=== PATIENT | male | born 1955 | race Caucasian/White ===

== ENCOUNTER → 2017-06-12 12:23 | Outpatient (CLI) | payer OTHER, SELFPAY ==
[2017-06-12 13:28] LABS: AST(SGOT) 22 U/L (15-37); Alanine Aminotransfer ALT/SGPT 39 U/L (16-61); Albumin, Serum 4.1 g/dL (3.2-5.0); Alkaline Phosphatase 34 U/L (45-117); Bilirubin, Direct 0.08 mg/dL (0.00-0.30); Cholesterol 173 mg/dL (200); Globulin 3.8 g/dL (2.2-4.2); High Density Lipoprotein 48 mg/dL; Protein, Total 7.9 g/dL (6.4-8.2); Triglycerides 170 mg/dL; Very Low Density Lipoprotein 34 mg/dL (5-40)
== END ==
PROVIDERS: Visit Provider Internal Medicine Cardiovascular Disease
DX: E78.5 Hyperlipidemia, unspecified (principal); Z79.899 Other long term (current) drug therapy
CPT/HCPCS: 36415; 80061; 80076

== ENCOUNTER 2017-09-25 15:37 | Emergency (ER) | payer OTHER, SELFPAY ==
[2017-09-25 15:38] VITALS: BP 128/90; PULSE 73; RESP 14; TEMP 36.8; O2SAT 98; BMI 27.3
--- NOTE | 2017-09-25 16:17 | RAD_ITS ---
STUDY: X-RAY - LEFT TIBIA AND FIBULA REASON FOR EXAM: Male, 62 years old. Fell through deck today. Bruising over the left lower leg. TECHNIQUE: 3 view(s) of the tibia and fibula were obtained. COMPARISON: None. FINDINGS: Normal visualized tibia. Normal visualized fibula. There is no acute fracture, dislocation or destructive osseous pathology. The knee and ankle are intact. There is mild soft tissue swelling over the lateral calf RAD/Tibia & Fibula 2 Views IMPRESSION: Soft tissue swelling over the lateral leg without fracture or dislocation. Electronically Signed: Vish Jauregui DO at 17:28 EDT Tel [phone], Service support ,
--- NOTE | 2017-09-25 16:18 | ED.RN ---
verbal orders per dr vines
--- NOTE | 2017-09-25 16:55 | RAD_ITS ---
STUDY: X-RAY - LEFT FEMUR REASON FOR STUDY: Male, 62 years old. Fell through deck. Bruising and swelling. TECHNIQUE: Radiological exam, femur, minimum 2 views COMPARISON: Left tibia and fibula, September 25, 2017. FINDINGS: Normal visualized femur. There is no fracture or dislocation. The knee and hip appear grossly unremarkable. There is soft tissue swelling over the lateral leg. RAD/Femur Min 2 Views IMPRESSION: Soft tissue swelling without underlying osseous or articular abnormality. Electronically Signed: Vish Jauregui DO at 17:29 EDT Tel [phone], Service support ,
--- NOTE | 2017-09-25 16:59 | ED.VISSUMM ---
- ER Visit Summary Date of Service: 09/25/17 Chief Complaint: Left lower extremity pain History of Present Illness: The patient is a 62 M presenting with left lower extremity pain. Patient was walking on a deck and fell through where there was a rotten board. He fell up to his left mid thigh. He did not hit his head or lose consciousness. He is on aspirin and Plavix. He is able to ambulate with pain. He went to work and was advised to come to the ED for further evaluation. Physical Examination: Vitals are stable. Patient is afebrile. Alert no acute distress. HEENT exam is unremarkable. Neck is nontender Lungs are clear and equal bilaterally. Heart is regular rate and rhythm. Abdomen is soft nontender nondistended. Extremities left lateral thigh hematoma, left lower extremity abrasion, normal distal pulse. Compartment is soft Skin is warm and dry. No focal neurologic deficit. Remainder of exam is unremarkable. Emergency Department Course and Treatment: Left femur and left tib fib x-rays show soft tissue swelling with no fracture. Patient is advised to ice and elevate. He is given Tylenol for pain. Advised to follow-up with primary care physician. Advised to return to the ED for worsening complaints. Disposition: Discharge home Impression: Left thigh contusion This note was generated with [employer] dictation software. It may contain incorrect words, spelling, and punctuation that were not noted in review of the chart prior to signing ED Disposition - Plan for ED Patient: Chief Complaint: Lower Extremity Injury Referrals: Care Physician,No Primary [Primary Care Provider] -
[2017-09-25 17:37] VITALS: BP 127/84; PULSE 76; RESP 16; O2SAT 97
--- NOTE | 2017-09-25 17:40 | ED.DEP ---
ED Disposition - Plan for ED Patient: Chief Complaint: Lower Extremity Injury Instructions: ED Contusion Lower Ext Referrals: Care Physician,No Primary [Primary Care Provider] -
[2017-09-25] MEDS: Acetaminophen 500 MG Tablet 1000 MG PO (17:54)
[2017-09-25 17:55] VITALS: BP 127/84; PULSE 76; RESP 16; O2SAT 98
== END 2017-09-25 17:56 | disposition home or self-care (01) ==
PROVIDERS: Emergency Provider Emergency Medicine
DX: S70.12XA Contusion of left thigh, initial encounter (principal); I25.10 Atherosclerotic heart disease of native coronary artery without angina pectoris; Z79.02 Long term (current) use of antithrombotics/antiplatelets; Z79.82 Long term (current) use of aspirin; W13.3XXA Fall through floor, initial encounter; Y93.01 Activity, walking, marching and hiking; Y92.008 Other place in unspecified non-institutional (private) residence as the place of occurrence of the external cause; Y99.8 Other external cause status
CPT/HCPCS: 73552; 73590; 99283

== ENCOUNTER → 2017-10-22 09:28 | Outpatient (CLI) | payer OTHER, SELFPAY ==
--- NOTE | 2017-10-22 09:32 | RAD_ITS ---
STUDY: X-RAY - LEFT FEMUR REASON FOR STUDY: Male, 62 years old. Lateral hematoma after fall one month ago for follow-up. TECHNIQUE: Radiological exam, femur, minimum 2 views COMPARISON: September 25, 2017. FINDINGS: Normal visualized femur. Soft tissue swelling lateral aspect of the mid upper leg decreased since the prior study. RAD/Femur Min 2 Views IMPRESSION: No fracture identified in the femur. Decreased soft tissue swelling upper leg. Recommend continued follow-up clinically to assess continued decrease in size of a presumed hematoma. Electronically Signed: Abdirahman Acosta MD at 7:49 EDT , Service support ,
== END ==
PROVIDERS: Family Provider Family Medicine; PCP Family Medicine; Visit Provider Family Medicine
DX: T14.8XXA Other injury of unspecified body region, initial encounter (principal)
CPT/HCPCS: 73552

== ENCOUNTER → 2018-11-13 | Outpatient (CLI) | payer OTHER, SELFPAY ==
[2018-11-11 14:43] VITALS: BMI 27.3
[2018-11-13 12:49] LABS: AST(SGOT) 24 U/L (15-37); Alanine Aminotransfer ALT/SGPT 27 U/L (16-61); Albumin, Serum 3.7 g/dL (3.2-5.0); Alkaline Phosphatase 35 U/L (45-117); Bilirubin, Direct 0.17 mg/dL (0.00-0.30); Cholesterol 169 mg/dL (200); Globulin 3.4 g/dL (2.2-4.2); High Density Lipoprotein 53 mg/dL; Protein, Total 7.1 g/dL (6.4-8.2); Triglycerides 92 mg/dL; Very Low Density Lipoprotein 18 mg/dL (5-40)
== END | disposition home or self-care (01) ==
PROVIDERS: Family Provider Family Medicine; PCP Family Medicine; Referring Provider Internal Medicine Cardiovascular Disease; Visit Provider Internal Medicine Cardiovascular Disease
DX: E78.5 Hyperlipidemia, unspecified (principal)
CPT/HCPCS: 36415; 80061; 80076

== ENCOUNTER → 2019-12-04 10:10 | Outpatient (CLI) | payer OTHER, SELFPAY ==
[2019-11-12 13:09] VITALS: BMI 26.3
[2019-12-04 11:29] LABS: AST(SGOT) 23 U/L (15-37); Alanine Aminotransfer ALT/SGPT 30 U/L (16-61); Albumin, Serum 3.7 g/dL (3.2-5.0); Alkaline Phosphatase 32 U/L (45-117); Bilirubin, Direct 0.22 mg/dL (0.00-0.30); Cholesterol 181 mg/dL (200); Globulin 3.6 g/dL (2.2-4.2); High Density Lipoprotein 59 mg/dL; Protein, Total 7.3 g/dL (6.4-8.2); Triglycerides 149 mg/dL; Very Low Density Lipoprotein 30 mg/dL (5-40)
== END ==
PROVIDERS: PCP Family Medicine; Referring Provider Internal Medicine Cardiovascular Disease; Visit Provider Internal Medicine Cardiovascular Disease
DX: E78.5 Hyperlipidemia, unspecified (principal)
CPT/HCPCS: 36415; 80061; 80076

== ENCOUNTER → 2020-11-15 | Outpatient (CLI) | payer OTHER, SELFPAY ==
[2020-11-15 13:00] VITALS: BMI 26.9
[2020-11-15 16:00] LABS: AST(SGOT) 20 U/L (15-37); Alanine Aminotransfer ALT/SGPT 39 U/L (16-61); Albumin, Serum 3.9 g/dL (3.2-5.0); Alkaline Phosphatase 35 U/L (45-117); Bilirubin, Direct 0.14 mg/dL (0.00-0.30); Cholesterol 197 mg/dL (200); Globulin 3.5 g/dL (2.2-4.2); High Density Lipoprotein 58 mg/dL; Protein, Total 7.4 g/dL (6.4-8.2); Triglycerides 123 mg/dL; Very Low Density Lipoprotein 25 mg/dL (5-40)
== END | disposition home or self-care (01) ==
LOC: LABSPEC 13:31
PROVIDERS: PCP Family Medicine; Referring Provider Internal Medicine Cardiovascular Disease; Visit Provider Internal Medicine Cardiovascular Disease
DX: E78.00 Pure hypercholesterolemia, unspecified (principal)
CPT/HCPCS: 36415; 80061; 80076

== ENCOUNTER → 2021-11-10 | Outpatient (CLI) | payer MEDICARE, OTHER, SELFPAY ==
[2021-11-10 12:10] LABS: AST(SGOT) 16 U/L (15-37); Alanine Aminotransfer ALT/SGPT 26 U/L (16-61); Albumin, Serum 3.8 g/dL (3.2-5.0); Alkaline Phosphatase 33 U/L (45-117); Bilirubin, Direct 0.11 mg/dL (0.00-0.30); Cholesterol 152 mg/dL (200); Globulin 3.2 g/dL (2.2-4.2); High Density Lipoprotein 49 mg/dL; Triglycerides 137 mg/dL; Very Low Density Lipoprotein 27 mg/dL (5-40)
== END | disposition home or self-care (01) ==
LOC: LAB 10:26
PROVIDERS: PCP Family Medicine; Visit Provider Internal Medicine Cardiovascular Disease
DX: E78.00 Pure hypercholesterolemia, unspecified (principal); E78.5 Hyperlipidemia, unspecified
CPT/HCPCS: 36415; 80061; 80076

== ENCOUNTER → 2022-12-11 | Outpatient (CLI) | payer MEDICARE, OTHER, SELFPAY ==
[2022-12-11 13:00] LABS: AST(SGOT) 20 U/L (15-37); Alanine Aminotransfer ALT/SGPT 27 U/L (16-61); Albumin, Serum 3.8 g/dL (3.2-5.0); Alkaline Phosphatase 39 U/L (45-117); Bilirubin, Direct 0.17 mg/dL (0.00-0.30); Cholesterol 172 mg/dL (200); Globulin 3.7 g/dL (2.2-4.2); High Density Lipoprotein 56 mg/dL; Protein, Total 7.5 g/dL (6.4-8.2); Triglycerides 95 mg/dL; Very Low Density Lipoprotein 19 mg/dL (5-40)
== END | disposition home or self-care (01) ==
PROVIDERS: Internal Medicine Cardiovascular Disease; PCP Family Medicine; Referring Provider Nurse Practitioner Gerontology; Visit Provider Nurse Practitioner Gerontology
DX: E78.00 Pure hypercholesterolemia, unspecified (principal)
CPT/HCPCS: 36415; 80061; 80076

== ENCOUNTER → 2023-05-02 | Outpatient (CLI) | payer MEDICARE, OTHER, SELFPAY ==
--- OUTSIDE RECORDS SUMMARY | 2023-05-02 07:14 | XMS RPT_ITS | CCD ---
Author Name Unknown Address [address] [place] [address] Organization [facility] Care Team Providers Care Sound Mixer Name Role Phone Nallely RITCHIE, Nely Yeung Unavailable Unavailable Fox Trivedi Unavailable Unavailable Fox Trivedi Unavailable Unavailable Alida HARDIN, Deven Vieira Unavailable [phone] Medications Completed/Discontinued Medications Medication Drug Class(es) Dates Sig (Normalized) Sig (Original) aspirin 81 mg oral tablet (8 sources) Nonsteroidal Anti-inflammatory Drug Start: 12-18-2013 take 1 tablet by mouth once daily ASPIRIN 81 MG TABS One tablet by mouth daily ASPIRIN [id number] Shaneka Oconnor RN Problems Active Problems Problem Classification Problem Date Documented Date Episodic/Chronic Acute myocardial infarction (4 sources) Non-ST elevation (NSTEMI) myocardial infarction; Translations: [Non-ST elevation (NSTEMI) myocardial infarction] Onset: 12-17-2013 12-17-2013 Chronic Coronary atherosclerosis and other heart disease (12 sources) Atherosclerotic heart disease of [place] coronary artery without angina pectoris; Translations: [Preinfarction syndrome] Onset: 12-17-2013 12-17-2013 Chronic Disorders of lipid metabolism (4 sources) Hyperlipidemia; Translations: [Hyperlipidemia, unspecified] Onset: 12-17-2013 12-17-2013 Chronic Essential hypertension (4 sources) Hypertensive disorder; Translations: [Essential (primary) hypertension] Onset: 12-17-2013 12-17-2013 Chronic Unclassified (4 sources) Percutaneous transluminal coronary angioplasty ; Translations: [Coronary angioplasty status] Onset: 12-17-2013 12-17-2013 Past or Other Problems Problem Classification Problem Date Documented Da te Episodic/Chronic Other aftercare (12 sources) Other alf (current) drug therapy; Translations: [Long-term (current) use of other medications] Onset: 03-11-2014 Resolved: 11-05-2014 11-05-2014 Episodic Other injuries and conditions due to external causes (4 sources) Injury, unspecified; Translations: [Injury, unspecified] Onset: 12-19-2013 12-19-2013 Episodic Other nutritional; endocrine; and metabolic disorders (4 sources) Body mass index (BMI) 26.0-26.9, adult; Translations: [Body mass index (BMI) 26.0-26.9, adult] Onset: 01-01-2014 01-01-2014 Episodic Results Test Name Value Interpretation Reference Range Facil ity Vital Signs Date Time Vital Sign Value Performing Clinician Faci lity 12-18-2016 09:29-0400 BMI (Body Mass Index) 26.88 kg/m2 [facility] Work Phone: 12-18-2016 09:29-0400 BP Diastolic 72 mm[Hg] LetMeHearYaumi DeFinis [facility] Work Phone: 12-18-2016 09:29-0400 BP Systolic 114 mm[Hg] Harumi DeFinis [facility] Work Phone: 12-18-2016 09:29-0400 Height 167.64 cm [facility]umi DeFinis [facility] Work Phone: 12-18-2016 09:29-0400 Pulse (Heart Rate) 58 /min Harumi DeFinis [facility] Work Phone: 12-18-2016 09:29-0400 Respiratory Rate 17 /min [facility]umi DeFinis [facility] Work Phone: 12-18-2016 09:29-0400 Weight 75.55 kg [facility] DeFinis [facility] Work Phone: 06-14-2016 08:50-0500 BMI (Body Mass Index) 26.5 kg/m2 Deven Irwin MD [facility] Work Phone: 06-14-2016 08:50-0500 BP Diastolic 82 mm[Hg] Deven Irwin MD [facility] Work Phone: 06-14-2016 08:50-0500 BP Systolic 112 mm[Hg] Deven Irwin MD [facility] Work Phone: 06-14-2016 08:50-0500 BSA (Body Surface Area) 1.84 m2 Deven Irwin MD [facility] Work Phone: 06-14-2016 08:50-0500 Pulse (Heart Rate) 60 /min [facility] Work Phone: 06-14-2016 08:50-0500 Respiratory Rate 16 /min Deven Irwin MD [facility] Work Phone: 06-14-2016 08:50-0500 Weight 74.48 kg Deven [facility] Work Phone: 01-01-2014 11:09-0400 Height 167.64 cm Deven Irwin MD [facility] Work Phone: Procedures Date Procedure Procedure Detail Performing Clinician Start: 03-13-2017 End: 06-12-2017 *Hepatic Function Panel Deven Irwin MD Start: 03-13-2017 End: 06-12-2017 Lipid panel [AGGREGATE] Deven Irwin MD Start: 12-18-2016 End: 12-18-2016 Electrocardiogram, complete Deven barry MD Start: 12-18-2016 End: 12-18-2016 Follow Up Appt 6 months Deven Irwin MD Start: 12-18-2016 End: 12-18-2016 MMM Deven Irwin MD Start: 11-22-2016 End: 12-11-2016 *Hepatic Function Panel Deven Irwin MD Start: 11-22-2016 End: 12-11-2016 Lipid panel [AGGREGATE] Deven Irwin MD Start: 06-14-2016 End: 06-14-2016 Follow Up Appt Other Polo Spann TEAM PRIMARY CARE PHYSICIAN-Delmy Start: 06-14-2016 End: 06-14-2016 PFM Polo Spann TEAM PRIMARY CARE PHYSICIAN-C Start: 05-19-2016 End: 05-23-2016 *Hepatic Function Panel Deven Irwin MD Start: 05-19-2016 End: 05-23-2016 Lipid panel [AGGREGATE] Deven Irwin MD Start: 12-17-2015 End: 12-17-2015 Follow Up Appt 6 months Deven Irwin MD Start: 12-17-2015 End: 12-17-2015 MMM Deven Irwin MD Start: 11-10-2015 End: 11-22-2015 *Hepatic Function Panel Deven Irwin MD Start: 11-10-2015 End: 11-22-2015 Lipid panel [AGGREGATE] Deven Irwin MD Start: 05-25-2015 End: 05-25-2015 Follow Up Appt 6 months Mandi alonzo PA-C Work Phone: Start: 05-25-2015 End: 05-25-2015 PFM Mandi Martines PA-C Work Phone: Start: 05-07-2015 End: 05-12-2015 *Hepatic Function Panel Deven Irwin MD Start: 05-07-2015 End: 05-12-2015 Lipid panel [AGGREGATE] Deven Irwin MD Start: 11-23-2014 End: 11-24-2014 Documentation of current medications Deven Irwin MD Start: 11-23-2014 End: 11-23-2014 Follow Up Appt 6 months Deven Irwin MD Start: 11-23-2014 End: 11-23-2014 MMM Deven Irwin MD Start: 09-26-2014 End: 11-04-2014 *Hepatic Function Panel Mandi alonzo PA-C Work Phone: Start: 09-26-2014 End: 11-04-2014 Lipid panel [AGGREGATE] Mandi alonzo PA-C Work Phone: Start: 06-12-2014 End: 06-12-2014 Follow Up Appt Other Mandi lewis PA-C Work Phone: Start: 06-12-2014 End: 06-12-2014 PFM Mandi Martines PA-C Work Phone: Start: 03-03-2014 End: 03-10-2014 *Hepatic Function Panel Mandi alonzo PA-C Work Phone: Start: 03-03-2014 End: 03-03-2014 Cardiac Rehab Mandi Martines PA-C Work Phone: Start: 03-03-2014 End: 06-12-2014 Cardiovascular stress test using treadmill Mandi Martines PA-C Work Phone: Start: 03-03-2014 End: 03-03-2014 Follow Up Appt 3 months Mandi alonzo PA-C Work Phone: Start: 03-03-2014 End: 03-03-2014 Follow Up Appt 6 months Mandi alonzo PA-C Work Phone: Start: 03-03-2014 End: 03-10-2014 Lipid panel [AGGREGATE] Mandi alonzo PA-C Work Phone: Start: 03-03-2014 End: 03-03-2014 MMM Mandi Martines PA-C Work Phone: Start: 03-03-2014 End: 03-03-2014 PFM Mandi Martines PA-C Work Phone: Start: 01-01-2014 End: 03-03-2014 *Hepatic Function Panel Deven Irwin MD Start: 01-01-2014 End: 01-01-2014 Electrocardiogram, complete Deven barry MD Start: 01-01-2014 End: 01-01-2014 Follow Up Appt 6 weeks Deven Irwin MD Start: 01-01-2014 End: 03-03-2014 Lipid panel [AGGREGATE] Deven Irwin MD Start: 01-01-2014 End: 01-01-2014 MMM Deven Irwin MD Start: 12-19-2013 End: 02-16-2014 Arterial exam Deven Irwin MD Start: 12-19-2013 End: 12-19-2013 Vascular Surgery Deven Irwin MD Plan of Treatment Date Care Activity Detail Author Start: 06-18-2017 End: 06-18-2017 Appointment Appointment [facility] Work Phone: Start: 03-13-2017 End: 06-12-2017 *Hepatic Function Panel *Hepatic Function Panel [facility] Work Phone: Start: 03-13-2017 End: 06-12-2017 Lipid panel [AGGREGATE] *Lipid Profile CC PCP [facility] Work Phone: Start: 12-18-2016 End: 12-18-2016 Appointment Appointment [facility] Work Phone: Start: 12-18-2016 End: 12-18-2016 Electrocardiogram, complete EKG (In office) [facility] Work Phone: Start: 12-18-2016 End: 12-18-2016 Follow Up Appt 6 months Follow Up Appt 6 months [facility] Work Phone: Start: 12-18-2016 End: 12-18-2016 MMM MMBaltazar [facility] Work Phone: Start: 11-22-2016 End: 12-11-2016 *Hepatic Function Panel *Hepatic Function Panel [facility] Work Phone: Start: 11-22-2016 End: 12-11-2016 Lipid panel [AGGREGATE] *Lipid Profile CC PCP [facility] Work Phone: Start: 06-14-2016 End: 06-14-2016 Follow Up Appt Other Follow Up Appt Other [facility] Work Phone: Start: 06-14-2016 End: 06-14-2016 PFM PFM [facility] Work Phone: Start: 05-19-2016 End: 05-23-2016 *Hepatic Function Panel *Hepatic Function Panel [facility] Work Phone: Start: 05-19-2016 End: 05-23-2016 Lipid panel [AGGREGATE] *Lipid Profile CC PCP [facility] Work Phone: Start: 12-17-2015 End: 12-17-2015 Follow Up Appt 6 months Follow Up Appt 6 months [facility] Work Phone: Start: 12-17-2015 End: 12-17-2015 MMM MMM [facility] Work Phone: Start: 11-10-2015 End: 11-22-2015 *Hepatic Function Panel *Hepatic Function Panel [facility] Work Phone: Start: 11-10-2015 End: 11-22-2015 Lipid panel [AGGREGATE] *Lipid Profile CC PCP [facility] Work Phone: Start: 05-25-2015 End: 05-25-2015 Follow Up Appt 6 months Follow Up Appt 6 months [facility] Work Phone: Start: 05-25-2015 End: 05-25-2015 PFM PFM [facility] Work Phone: Start: 05-07-2015 End: 05-12-2015 *Hepatic Function Panel *Hepatic Function Panel [facility] Work Phone: Start: 05-07-2015 End: 05-12-2015 Lipid panel [AGGREGATE] *Lipid Profile CC PCP [facility] Work Phone: Start: 11-23-2014 End: 11-23-2014 Follow Up Appt 6 months Follow Up Appt 6 months [facility] Work Phone: Start: 11-23-2014 End: 11-23-2014 MMM MMM [facility] Work Phone: Start: 09-26-2014 End: 11-04-2014 *Hepatic Function Panel *Hepatic Function Panel [facility] Work Phone: Start: 09-26-2014 End: 11-04-2014 Lipid panel [AGGREGATE] *Lipid Profile CC PCP [facility] Work Phone: Start: 06-12-2014 End: 06-12-2014 Follow Up Appt Other Follow Up Appt Other [facility] Work Phone: Start: 06-12-2014 End: 06-12-2014 PFM PFM [facility] Work Phone: Start: 03-03-2014 End: 03-10-2014 *Hepatic Function Panel *Hepatic Function Panel [facility] Work Phone: Start: 03-03-2014 End: 03-03-2014 Cardiac Rehab Cardiac Rehab [facility] Work Phone: Start: 03-03-2014 End: 03-03-2014 Cardiovascular stress test using treadmill Treadmill stress test (no imaging) [facility] Work Phone: Start: 03-03-2014 End: 03-03-2014 Follow Up Appt 3 months Follow Up Appt 3 months [facility] Work Phone: Start: 03-03-2014 End: 03-03-2014 Follow Up Appt 6 months Follow Up Appt 6 months [facility] Work Phone: Start: 03-03-2014 End: 03-10-2014 Lipid panel [AGGREGATE] *Lipid Profile CC PCP [facility] Work Phone: Start: 03-03-2014 End: 03-03-2014 MMM MMM [facility] Work Phone: Start: 03-03-2014 End: 03-03-2014 PFM PFM [facility] Work Phone: Start: 01-01-2014 End: 03-03-2014 *Hepatic Function Panel *Hepatic Function Panel [facility] Work Phone: Start: 01-01-2014 End: 01-01-2014 Electrocardiogram, complete EKG (In office) [facility] Work Phone: Start: 01-01-2014 End: 01-01-2014 Follow Up Appt 6 weeks Follow Up Appt 6 weeks [facility] Work Phone: Start: 01-01-2014 End: 03-03-2014 Lipid panel [AGGREGATE] *Lipid Profile CC PCP [facility] Work Phone: Start: 01-01-2014 End: 01-01-2014 MMM MMM [facility] Work Phone: Start: 12-19-2013 End: 01-01-2014 Arterial exam Arterial exam [facility] Work Phone: Start: 12-19-2013 End: 12-19-2013 Vascular Surgery Vascular Surgery [facility], [address] [place] [address], [address] [place] [address], [id number] [facility] Work Phone: Patient Education [facility] Work Phone: Additional Source Comments FOR RECORDS PERTAINING TO PATIENTS WHO ARE OR HAVE BEEN ENROLLED IN A CHEMICAL DEPENDENCY/SUBSTANCEABUSE PROGRAM, SOME INFORMATION MAY BE OMITTED. This clinical summary was aggregated from multiple sources. Caution should be exercised in using it in the provision of clinical care. This summary normalizes information from multiple sources, and as a consequence, information in this document may materially change the coding, format and clinical context of patient data. In addition, data may be omitted in some cases. CLINICAL DECISIONS SHOULD BE BASED ON THE PRIMARY CLINICAL RECORDS. [employer] provides no warranty or guarantee of the accuracy or completeness of information in this document.
--- NOTE | 2023-05-02 08:18 | NEURO ---
NCS and/or EMG Patient Report Ordering Doctor: Kelvin Nur DATE OF SERVICE: 05/02/23 Terry presents for electrodiagnostic testing of the upper limbs. He complains of intermittent numbness and tingling in both hands for the past several weeks. Electrodiagnostic Testing: Prolonged median motor latency with normal amplitude and reduced conduction velocity bilaterally. Normal ulnar motor response bilaterally. Normal median and ulnar F?waves. Prolonged median sensory latency at the wrist bilaterally. Needle EMG testing was performed in the upper limbs. All muscles tested showed no evidence of denervation with normal motor unit action potentials. Electrodiagnostic impression: This is an abnormal study in the upper limbs 1. Electrodiagnostic findings suggestive of bilateral median mononeuropathy. This is consistent with a mild bilateral carpal tunnel syndrome. Multi Select Codes Neurology Neurology Interp Codes: 52842-01 Musc test done w/n test comp (interp) (2) and 06102-30 Nrv cndj test 9-10 studies (interp)
== END | disposition home or self-care (01) ==
LOC: PSN 06:55
PROVIDERS: PCP Family Medicine; Referring Provider Physician Assistant; Visit Provider Physician Assistant
DX: M79.641 Pain in right hand (principal); R20.2 Paresthesia of skin
CPT/HCPCS: 95886; 95911

== ENCOUNTER → 2023-05-09 | Outpatient (CLI) | payer MEDICARE, OTHER, SELFPAY ==
--- OUTSIDE RECORDS SUMMARY | 2023-05-09 07:03 | XMS RPT_ITS | CCD ---
Author Name Unknown Address [address] [place] [address] [facility] Team Providers Care Bone Char Operator Name Role Phone Nallely RITCHIE, Nely Yeung Unavailable Unavailable Fox Trivedi Unavailable Unavailable Fox Trivedi Unavailable Unavailable Alida HARDIN, Deven Vieira Unavailable [phone] Medications Completed/Discontinued Medications Medication Drug Class(es) Dates Sig (Normalized) Sig (Original) aspirin 81 mg oral tablet (8 sources) Nonsteroidal Anti-inflammatory Drug Start: 12-18-2013 take 1 tablet by mouth once daily ASPIRIN 81 MG TABS One tablet by mouth daily ASPIRIN [id number] Shaneka Oconnor RN Problems Active Problems Problem Classification Problem Date Documented Date Episodic/Chronic Acute myocardial infarction (4 sources) Non-ST elevation (NSTEMI) myocardial infarction; Translations: [Non-ST elevation (NSTEMI) myocardial infarction] Onset: 12-17-2013 12-17-2013 Chronic Coronary atherosclerosis and other heart disease (12 sources) Atherosclerotic heart disease of [place] coronary artery without angina pectoris; Translations: [Preinfarction [...] te Episodic/Chronic Other aftercare (12 sources) Other terminal superintendent (current) drug therapy; Translations: [Long-term (current) use [...] 09:29-0400 BMI (Body Mass Index) 26.88 kg/m2 [facility] Work Phone: 12-18-2016 09:29-0400 BP Diastolic 72 mm[Hg] Kaymbuumi DeFinis [facility] Work Phone: 12-18-2016 09:29-0400 BP Systolic 114 mm[Hg] Harumi DeFinis [facility] Work Phone: 12-18-2016 09:29-0400 Height 167.64 cm Kaymb[place] DeFinis [facility] Work Phone: 12-18-2016 09:29-0400 Pulse (Heart Rate) 58 /min Harumi DeFinis [facility] Work Phone: 12-18-2016 09:29-0400 Respiratory Rate 17 /min Kaymb[place]i DeFinis [facility] Work Phone: 12-18-2016 09:29-0400 Weight 75.55 kg Kaymb[place] DeFinis [facility] Work Phone: 06-14-2016 08:50-0500 BMI (Body Mass Index) 26.5 kg/m2 Deven Irwin MD [facility] Work Phone: 06-14-2016 08:50-0500 BP Diastolic 82 mm[Hg] Deven Irwin MD [facility] Work Phone: 06-14-2016 08:50-0500 BP Systolic 112 mm[Hg] Deven Irwin MD [facility] Work Phone: 06-14-2016 08:50-0500 BSA (Body Surface Area) 1.84 m2 Deven Irwin MD [facility] Work Phone: 06-14-2016 08:50-0500 Pulse (Heart Rate) 60 /min [facility] Work Phone: 06-14-2016 08:50-0500 Respiratory Rate 16 /min Deven Irwin MD [facility] Work Phone: 06-14-2016 08:50-0500 Weight 74.48 kg Deven [facility] Work Phone: 01-01-2014 11:09-0400 Height 167.64 cm Deven Irwin MD [facility] Work Phone: Procedures Date Procedure [...] 06-14-2016 Follow Up Appt Other [facility] Start: 06-14-2016 End: 06-14-2016 PFM [facility] Start: 05-19-2016 End: 05-23-2016 *Hepatic Function Panel [...] Author Start: 06-18-2017 End: 06-18-2017 Appointment Appointment [facility] Work Phone: Start: 03-13-2017 End: 06-12-2017 *Hepatic Function Panel *Hepatic Function Panel [facility] Work Phone: Start: 03-13-2017 End: 06-12-2017 Lipid panel [AGGREGATE] *Lipid Profile CC PCP [facility] Work Phone: Start: 12-18-2016 End: 12-18-2016 Appointment Appointment [facility] Work Phone: Start: 12-18-2016 End: 12-18-2016 Electrocardiogram, complete EKG (In office) [facility] Work Phone: Start: 12-18-2016 End: 12-18-2016 Follow Up Appt 6 months Follow Up Appt 6 months [facility] Work Phone: Start: 12-18-2016 End: 12-18-2016 MMM MMBaltazar [facility] Work Phone: Start: 11-22-2016 End: 12-11-2016 *Hepatic Function Panel *Hepatic Function Panel [facility] Work Phone: Start: 11-22-2016 End: 12-11-2016 Lipid panel [AGGREGATE] *Lipid Profile CC PCP [facility] Work Phone: Start: 06-14-2016 End: 06-14-2016 Follow Up Appt Other Follow Up Appt Other [facility] Work Phone: Start: 06-14-2016 End: 06-14-2016 PFM PFM [facility] Work Phone: Start: 05-19-2016 End: 05-23-2016 *Hepatic Function Panel *Hepatic Function Panel [facility] Work Phone: Start: 05-19-2016 End: 05-23-2016 Lipid panel [AGGREGATE] *Lipid Profile CC PCP [facility] Work Phone: Start: 12-17-2015 End: 12-17-2015 Follow Up Appt 6 months Follow Up Appt 6 months [facility] Work Phone: Start: 12-17-2015 End: 12-17-2015 MMM MMM [facility] Work Phone: Start: 11-10-2015 End: 11-22-2015 *Hepatic Function Panel *Hepatic Function Panel [facility] Work Phone: Start: 11-10-2015 End: 11-22-2015 Lipid panel [AGGREGATE] *Lipid Profile CC PCP [facility] Work Phone: Start: 05-25-2015 End: 05-25-2015 Follow Up Appt 6 months Follow Up Appt 6 months [facility] Work Phone: Start: 05-25-2015 End: 05-25-2015 PFM PFM [facility] Work Phone: Start: 05-07-2015 End: 05-12-2015 *Hepatic Function Panel *Hepatic Function Panel [facility] Work Phone: Start: 05-07-2015 End: 05-12-2015 Lipid panel [AGGREGATE] *Lipid Profile CC PCP [facility] Work Phone: Start: 11-23-2014 End: 11-23-2014 Follow Up Appt 6 months Follow Up Appt 6 months [facility] Work Phone: Start: 11-23-2014 End: 11-23-2014 MMM MMM [facility] Work Phone: Start: 09-26-2014 End: 11-04-2014 *Hepatic Function Panel *Hepatic Function Panel [facility] Work Phone: Start: 09-26-2014 End: 11-04-2014 Lipid panel [AGGREGATE] *Lipid Profile CC PCP [facility] Work Phone: Start: 06-12-2014 End: 06-12-2014 Follow Up Appt Other Follow Up Appt Other [facility] Work Phone: Start: 06-12-2014 End: 06-12-2014 PFM PFM [facility] Work Phone: Start: 03-03-2014 End: 03-10-2014 *Hepatic Function Panel *Hepatic Function Panel [facility] Work Phone: Start: 03-03-2014 End: 03-03-2014 Cardiac Rehab Cardiac Rehab [facility] Work Phone: Start: 03-03-2014 End: 03-03-2014 Cardiovascular stress test using treadmill Treadmill stress test (no imaging) [facility] Work Phone: Start: 03-03-2014 End: 03-03-2014 Follow Up Appt 3 months Follow Up Appt 3 months [facility] Work Phone: Start: 03-03-2014 End: 03-03-2014 Follow Up Appt 6 months Follow Up Appt 6 months [facility] Work Phone: Start: 03-03-2014 End: 03-10-2014 Lipid panel [AGGREGATE] *Lipid Profile CC PCP [facility] Work Phone: Start: 03-03-2014 End: 03-03-2014 MMM MMM [facility] Work Phone: Start: 03-03-2014 End: 03-03-2014 PFM PFM [facility] Work Phone: Start: 01-01-2014 End: 03-03-2014 *Hepatic Function Panel *Hepatic Function Panel [facility] Work Phone: Start: 01-01-2014 End: 01-01-2014 Electrocardiogram, complete EKG (In office) [facility] Work Phone: Start: 01-01-2014 End: 01-01-2014 Follow Up Appt 6 weeks Follow Up Appt 6 weeks [facility] Work Phone: Start: 01-01-2014 End: 03-03-2014 Lipid panel [AGGREGATE] *Lipid Profile CC PCP [facility] Work Phone: Start: 01-01-2014 End: 01-01-2014 MMM MMM [facility] Work Phone: Start: 12-19-2013 End: 01-01-2014 Arterial exam Arterial exam [facility] Work Phone: Start: 12-19-2013 End: 12-19-2013 Vascular Surgery Vascular Surgery [facility], [address] [place] [address], [address] [place] [address], [id number] [facility] Work Phone: Patient Education [facility] Work Phone: Additional Source [...] BE BASED ON THE PRIMARY CLINICAL RECORDS. [employer] provides no warranty or guarantee of the accuracy or completeness of information in this document.
--- NOTE | 2023-05-09 13:11 | STRESSREP ---
Stress Test Report Exercise myocardial perfusion stress test. 68-year-old man with a history of coronary artery disease Stress protocol: Resting EKG demonstrates sinus bradycardia with a rate of 53 bpm resting blood pressure is 136/80 mmHg. The patient exercised according to the regular Sukhwinder protocol for a total duration of 9 minutes attaining a maximum heart rate of 141 bpm which was 92% of maximum predicted heart rate; the maximum workload was 10.1 metabolic equivalents. At rest there were no ST or T wave changes noted to suggest ischemia and at peak exercise upsloping ST changes only were noted which did not meet the criteria for ischemia. No clinical angina was noted the test was terminated due to the target heart rate being achieved/fatigue. The peak blood pressure was 172/90 mmHg. Rate-pressure product was 23,600. Myocardial perfusion protocol. 11.1 mCi of technetium 99m sestamibi was injected at rest. The patient exercised according to regular Sukhwinder protocol for total duration of 9 minutes and at peak exercise 33.7 mCi of technetium 99m sestamibi was injected stress images were obtained stress and rest images were reconstructed in comparing the short axis vertical long and horizontal long axis. Gated images were also obtained. Perfusion SPECT analysis: Review of the stress images demonstrate normal uptake of tracer noted in all areas of the myocardium. The resting images similarly demonstrate normal uptake of tracer noted in all areas of the myocardium. No areas of reversibility are noted to suggest ischemia no previous infarct was noted. Gated SPECT analysis: The gated ejection fraction is 74%. Conclusion: Normal exercise myocardial perfusion stress test at a high workload Preserved ejection fraction.
== END | disposition home or self-care (01) ==
LOC: CVS 06:54
PROVIDERS: PCP Family Medicine; Referring Provider Internal Medicine Cardiovascular Disease; Visit Provider Internal Medicine Cardiovascular Disease
DX: I25.10 Atherosclerotic heart disease of native coronary artery without angina pectoris (principal); Z95.5 Presence of coronary angioplasty implant and graft
CPT/HCPCS: 78452; 93017; A9500; A4216

== ENCOUNTER → 2024-03-17 | Outpatient (CLI) | payer MEDICARE, OTHER, SELFPAY ==
[2024-03-17 11:38] LABS: AST(SGOT) 19 U/L (15-37); Alanine Aminotransfer ALT/SGPT 33 U/L (16-61); Albumin, Serum 3.8 g/dL (3.2-5.0); Alkaline Phosphatase 34 U/L (45-117); Bilirubin, Direct 0.14 mg/dL (0.00-0.30); Cholesterol 172 mg/dL (200); Globulin 3.3 g/dL (2.2-4.2); High Density Lipoprotein 47 mg/dL; Protein, Total 7.1 g/dL (6.4-8.2); Triglycerides 155 mg/dL; Very Low Density Lipoprotein 31 mg/dL (5-40)
== END | disposition home or self-care (01) ==
PROVIDERS: PCP Family Medicine; Referring Provider Nurse Practitioner Gerontology; Visit Provider Physician Assistant Medical
DX: E78.00 Pure hypercholesterolemia, unspecified (principal)
CPT/HCPCS: 36415; 80061; 80076

== ENCOUNTER → 2024-09-17 | Outpatient (CLI) | payer MEDICARE, OTHER, SELFPAY ==
[2024-09-18 11:21] LABS: AST(SGOT) 27 U/L (<=37); Alanine Aminotransfer ALT/SGPT 36 U/L (<=46); Albumin, Serum 4.6 g/dL (3.4-4.8); Alkaline Phosphatase 36 U/L (40-129); Bilirubin, Direct 0.17 mg/dL (0.00-0.30); Cholesterol 198 mg/dL (<=200); Globulin 1.8 g/dL (2.2-4.2); High Density Lipoprotein 52 mg/dL; Low Density Lipoprotein Calc. 117 mg/dL; Protein, Total 6.4 g/dL (5.9-8.4); Total Bilirubin 0.46 mg/dL (0.00-1.30); Triglycerides 143 mg/dL; Very Low Density Lipoprotein 29 mg/dL (5-40); cholesterol:hdl ratio screen 3.79
== END | disposition home or self-care (01) ==
LOC: LAB 11:31
PROVIDERS: PCP Family Medicine; Referring Provider Physician Assistant Medical; Visit Provider Physician Assistant Medical
DX: E78.5 Hyperlipidemia, unspecified (principal); Z95.5 Presence of coronary angioplasty implant and graft
CPT/HCPCS: 36415; 80061; 80076

== ENCOUNTER → 2024-12-16 | Outpatient (CLI) | payer MEDICARE, OTHER, SELFPAY ==
[2024-12-16 15:55] LABS: Hematocrit 41.5 % (40-54); Hemoglobin 14.0 g/dL (13.0-16.5); Immature Granulocytes Count 0.030 X10^3/uL (0.0-0.0); Mean Corp Hgb Conc 33.7 g/dL (32-36); Mean Corpuscular Volume 89.6 fL (80-94); Mean Platelet Vol. 10.1 fl (6.2-12.0); NRBC Flagged by Analyzer 0 % (0-5); Platelet Count 255 K/mm3 (150-450); RBC Distribution Width CV 12.4 % (11.6-14.6); RBC Distribution Width SD 40.4 fl (35.1-43.9); Red Blood Count 4.63 M/mm3 (4.6-6.2); White Blood Count 6.3 K/mm3 (4.4-11.0)
[2024-12-16 16:58] LABS: AST(SGOT) 26 U/L (<=37); Alanine Aminotransfer ALT/SGPT 34 U/L (<=46); Albumin, Serum 4.6 g/dL (3.4-4.8); Alkaline Phosphatase 37 U/L (40-129); Anion Gap 13 (5-15); BUN 10 mg/dL (4-19); BUN/Creat Ratio 11.6 RATIO (10-20); Calcium,Total 10.0 mg/dL (7.6-11.0); Carbon Dioxide 23.7 mmol/L (21.0-32.0); Chloride 105 mmol/L (98-108); Globulin 2.4 g/dL (2.2-4.2); Glucose 94 mg/dL (70-99); Hepatitis C Antibody Nonreactive (Nonreactive); PSA,Total - Annual Screen 3.58 ng/mL (0.02-4.00); Potassium 4.6 mmol/L (3.3-5.1); Vitamin D,25 Hydroxy 47.4 ng/mL (30-100)
[2024-12-16 17:20] LABS: Cholesterol 183 mg/dL (<=200); Low Density Lipoprotein Calc. 98 mg/dL; Triglycerides 139 mg/dL; Very Low Density Lipoprotein 28 mg/dL (5-40); cholesterol:hdl ratio screen 3.21
--- OUTSIDE RECORDS SUMMARY | 2024-12-16 22:28 | XMS RPT_ITS | CCD ---
Author Organization [facility] CliniSymd Care Team Providers Care Employment Supervisor Name Role Phone Nallely RITCHIE, Nely Yeung Unavailable Unavailable DeFinis, Harumi Y Unavailable Unavailable DeFinis, Harumi Y Unavailable Unavailable Alida HARDIN, Deven Vieira Unavailable Dr. Jose Luis Corona Primary Care Provider Dr. Jose Luis Corona Referring Provider IVA العراقي Attending Provider NOLAN Walton Referring Provider [phone] NOLAN Walton Other Provider Dr. Michael Hercules Attending Provider Dr. Hussain Tee Attending Provider [phone] Hussain Tee Referring Provider [phone] Hussain Tee Other Provider Dr. Favian Corona MD Primary Care Provider Dr. Favian Corona MD Referring Provider [phone] Mandi العراقي Attending Provider Mandi العراقي Referring Provider [phone] Favian Corona Referring Unavailable Favian Corona Primary Care Unavailable Mandi العراقي Attending Unavail able Favian Corona Primary Care Unavailable Mandi العراقي Referring Unavail able Mandi العراقي Attending Unavail able Sun Roche NP Referring Unavailable Favian Corona Primary Care Unavailable Mandi العراقي Attending Unavail able Favian Corona Referring Unavailable Favian Corona Primary Care Unavailable Bobbi ENRIQUE, Mandi Ledesma Attending [facility] able Medications Current Medications Medication Drug Class(es) Dates Sig (Normalized) Sig (Original) aspirin 81 mg delayed release oral tablet (14 sources) Nonsteroidal Anti-inflammatory Drug Start: 12-18-2013 Aspirin (Adult Low Dose Aspirin) 81 mg tablet,delayed release (DR/EC) Active 81 mg PO daily June 12, 2017 1:00am Start: 12-18-2013 take 1 tablet by kyle th once daily ASPIRIN 81 MG TABS One tablet by mouth daily ASPIRIN [id number] Shaneka Oconnor RN Start: 12-18-2013 take 1 tablet by kyle th once daily ASPIRIN 81 MG TABS One tablet by mouth daily ASPIRIN [id number] Shaneka Oconnor RN losartan potassium 25 mg oral tablet (2 sources) Angiotensin 2 Receptor Trever Start: 09-17-2024 take 1 tablet by mouth once daily Losartan 25 mg tablet Active 25 mg PO daily September 17, 2024 12:00am Multivitamin preparation (4 sources) Start: 11-11-2018 take 1 tablet by mouth once daily Multivitamin Active 1 TABLET PO DAILY November 10, 2018 11:00pm Start: 11-11-2018 take 1 tablet by kyle once daily Multivitamin Active 1 TABLET PO DAILY November 11, 2018 12:00am Multivitamin tablet (2 sources) Start: 11-11-2018 Multivitamin t ablet Active 1 {tbl} PO DAILY November 11, 2018 12:00am [place]-3 Fatty Acids (Fish Oil Concentrate) 1,000 mg capsule (6 sources) Start: 11-11-2018 take 1 capsule by mouth once daily [place]-3 Fatty Acids (Fish Oil Concentrate) 1,000 mg capsule Active 1000 mg PO DAILY November 11, 2018 12:00am Start: 11-11-2018 take 1 capsule by [facility] once daily [place]-3 Fatty Acids (Fish Oil Concentrate) 1,000 mg capsule Active 1000 MG PO DAILY November 10, 2018 11:00pm Start: 11-11-2018 take 1 capsule by [facility] once daily [place]-3 Fatty Acids (Fish Oil Concentrate) 1,000 mg capsule Active 1000 MG PO DAILY November 11, 2018 12:00am Completed/Discontinued Medications Medication Drug Class(es) Dates Sig (Normalized) Sig (Original) atorvastatin 40 mg oral tablet (20 sources) HMG-CoA Reductase Inhibitor Start: 12-18-2013 End: 08-25-2024 take 1 tablet by mouth once daily Atorvastatin 40 mg tablet Discontinued 40 mg PO daily June 25, 2023 9:01am August 25, 2024 8:18am Start: 12-18-2013 take 1 tablet by kyle th once daily ATORVASTATIN CALCIUM 80 MG TABS One tablet by mouth daily ATORVASTATIN CALCIUM [id number] Deevn Irwin MD clopidogrel 75 mg oral tablet (10 sources) P2Y12 Platelet Inhibitor Start: 12-17-2013 End: 11-11-2018 take 1 tablet by mouth once daily Clopidogrel 75 mg tablet Discontinued 75 mg PO daily June 12, 2017 1:00am November 11, 2018 2:36pm lisinopril 2.5 mg oral tablet (20 sources) Angiotensin Converting Enzyme Inhibitor Start: 06-12-2017 End: 11-11-2018 take 1 tablet by mouth once daily Lisinopril 2.5 mg tablet Discontinued 2.5 mg PO daily June 12, 2017 1:00am November 11, 2018 2:38pm Start: 12-17-2015 take 1 tablet by kyle th once daily LISINOPRIL 2.5 MG TABS One tablet by mouth daily LISINOPRIL [id number] Deven Irwin MD Start: 12-18-2013 End: 05-25-2015 take 1 tablet by mouth once daily LISINOPRIL 2.5 MG TABS One tablet by mouth daily LISINOPRIL [id number] Deven Irwin MD metoprolol tartrate 25 mg oral tablet (20 sources) beta-Adrenergic Trever Start: 12-18-2013 End: 09-17-2024 take 1 tablet by mouth twice daily Metoprolol Tartrate 25 mg tablet Discontinued 25 mg PO TWICE A DAY 180 June 12, 2023 9:19am September 17, 2024 11:15am MULTIPLE VITAMIN (4 sources) Start: 12-18-2013 take 1 tablet by mouth once daily MULTIVITAMINS TABS One tablet by mouth daily MULTIPLE VITAMIN Shaneka Oconnor RN Problems Active Problems Problem Classification Problem Date Documented Date Episodic/Chronic Acute myocardial infarction (10 sources) Non-ST elevation (NSTEMI) myocardial infarction; Translations: [Myocardial infarction] Onset: 12-17-2013 12-17-2013 Chronic Comment on above: 12/15/13 Coronary atherosclerosis and other heart disease (20 sources) Atherosclerotic heart disease of [place] coronary artery without angina pectoris; Translations: [Preinfarction syndrome] Onset: 12-17-2013 12-17-2013 Chronic Coronary atherosclerosis and other heart disease (17 sources) Stented coronary artery; Translations: [Presence of coronary angioplasty implant and graft] Onset: 11-28-2013 10-24-2021 Episodic Comment on above: PTCA & LU to proxim al CX, a well as balloon angioplasty only to inferior branch of obtuse marginal @ [facility] 12/15/13 Disorders of lipid metabolism (16 sources) Hyperlipidemia; Translations: [Hyperlipidemia, unspecified] Onset: 12-17-2013 12-17-2013 Chronic Essential hypertension (14 sources) Hypertensive disorder; Translations: [Essential hypertension] Onset: 12-17-2013 12-17-2013 Chronic Other aftercare (18 sources) Other ocean transportation intermediary (current) drug therapy; Translations: [Long-term (current) use of other medications] Onset: 03-11-2014 Resolved: 11-05-2014 11-05-2014 Episodic Other liver diseases (6 sources) Enzyme level - finding; Translations: [Abnormal serum enzyme level, unspecified] 06-12-2017 Episodic Peripheral and visceral atherosclerosis (6 sources) Peripheral vascular disease; Translations: [Peripheral vascular disease, unspecified] 11-08-2018 Chronic Unclassified (4 sources) Percutaneous transluminal coronary angioplasty ; Translations: [Coronary angioplasty status] Onset: 12-17-2013 12-17-2013 Past or Other Problems Problem Classification Problem Date Documented Da te Episodic/Chronic Other injuries and conditions due to external causes (4 sources) Injury, unspecified; Translations: [Injury, unspecified] Onset: 12-19-2013 12-19-2013 Episodic Other nutritional; endocrine; and metabolic disorders (4 sources) Body mass index (BMI) 26.0-26.9, adult; Translations: [Body mass index (BMI) 26.0-26.9, adult] Onset: 01-01-2014 01-01-2014 Episodic Results Test Name Value Interpretation Reference Range Facility Lipid Profileon 09-18-2024 CHOL:HDL 3.79 Normal [facility] Comment on above: Performed By: #### L 500.4100, L500.3400 #### [facility] [address] [place], [address] Cholesterol [Mass/Vol] 198 mg/dL Normal <=200 [facility] Comment on above: Result Comment: Chol esterol level, Desirable <200 mg/dL Borderline high cholesterol 200-239 mg/dL High cholesterol >=240 mg/dL Recommendations of the NCEP Adult Treatment Panel for the following risk-cutoff thresholds for the [place] population. Performed By: #### L 500.4100, L500.3400 #### [facility] [address] [place], [address] Cholesterol in HDL [Mass/Vol] 52 mg/dL Normal [facility] Comment on above: Result Comment: Lexie onal Cholesterol Education Program (NCEP) guidelines: <40 mg/dL: Low HDL-cholesterol (major risk factor for CHD) >= 60 mg/dL: High HDL-cholesterol (negative risk factor for CHD) HDL-cholesterol is affected by a number of factors, e.g. smoking, exercise, hormones, sex and age. Performed By: #### L 500.4100, L500.3400 #### [facility] [address] [place], [address] Cholesterol in LDL [Mass/Vol] 117 mg/dL Normal [facility] Comment on above: Result Comment: Bord jaakgh=020-104 mg/dL Higher Tdpa=208 mg/dL or greater Performed By: #### L 500.4100, L500.3400 #### [facility] [address] [place], [address] Cholesterol in VLDL [Mass/Vol] 29 mg/dL Normal 5-40 [facility] Comment on above: Performed By: #### L 500.4100, L500.3400 #### [facility] [address] [place], [address] Triglyceride [Mass/Vol] 143 mg/dL Normal [facility] Comment on above: Result Comment: The drugs N-Acetylcysteine and Metamizole may falsely depress this assay. Normal range: <150 mg/dL Borderline High: 150-199 mg/dL High: 200-499 mg/dL Very High: >500 mg/dL Performed By: #### L 500.4100, L500.3400 #### [facility] [address] [place], [address] Liver Profileon 09-18-2024 Albumin [Mass/Vol] 4.6 g/dL Normal 3.4-4.8 [facility] Comment on above: Performed By: #### L 500.4100, L500.3400 #### [facility] [address] [place], [address] ALK PHOS 36 U/L Low 40-129 [facility] Comment on above: Performed By: #### L 500.4100, L500.3400 #### [facility] [address] [place], [address] ALT [Catalytic activity/Vol] 36 U/L Normal <=46 [facility] Comment on above: Performed By: #### L 500.4100, L500.3400 #### [facility] [address] [place], [address] AST [Catalytic activity/Vol] 27 U/L Normal <=37 [facility] Comment on above: Performed By: #### L 500.4100, L500.3400 #### [facility] [address] [place], [address] Bilirubin [Mass/Vol] 0.46 mg/dL Normal 0.00-1.30 [facility] Comment on above: Performed By: #### L 500.4100, L500.3400 #### [facility] [address] [place], [address] Bilirubin.direct [Mass/Vol] 0.17 mg/dL Normal 0.00-0.30 [facility] Comment on above: Performed By: #### L 500.4100, L500.3400 #### [facility] [address] [place], [address] Globulin (S) [Mass/Vol] 1.8 g/dL Low 2.2-4.2 [facility] Comment on above: Performed By: #### L 500.4100, L500.3400 #### [facility] [address] [place], [address] T PROT 6.4 g/dL Normal 5.9-8.4 [facility] Comment on above: Performed By: #### L 500.4100, L500.3400 #### [facility] [address] [place], [address] Bilirubin directOrdered By: Mandi Martines on 09-17-2024 Bilirubin.direct [Mass/Vol] 0.17 mg/dL 0.00-0.30 [facility] Bilirubin, totalOrdered By: Mandi Martines on 09-17-2024 Bilirubin [Mass/Vol] 0.46 mg/dL 0.00-1.30 [facility] Calculated very low density lipoprotein (VLDL) cholesterol measurementOrdered By: Mandi Martines on 09-17-2024 Calculated very low density lipoprotein (VLDL) cholesterol measurement 29 mg/dL 5-40 [facility] Cardiology Visit Reporton Cardiology Visit Report [facility] [place] [facility] [address] [place], [place] [address] OFFICE VISIT Date of Service: 09/17/24 MR#: [id number] Acct: [id number] Name: TERRY MADDEN Rep #: [id number] : 1955 Provider: IVA Ruano Age/Sex: 69/M Location: [place] Status: Signed HPI HPI History of Present Illness Details: Terry Madden is a 68-year-old white male with a history of CAD, status post previous LCx PCI- (2013), hypertension and hyperlipidemia. He had a stress test in 04/2023, this was for arm numbness, this was negative for ischemia at a high workload. From a cardiac standpoint, patient is doing well. He does not have any chest discomfort/heavines s/tightness. His exercise tolerance is stable for his age. He does not have any worsening symptoms of shortness of breath. He denies any PND. He does not have any orthopnea. He does not have any symptoms of congestive heart failure. He does not have any palpitations that he is aware of. He does not have any lightheadedness or dizziness. He does not have any near-syncope or syncope. He does not have any lower extremity edema. He does not have any symptoms of claudication. Intake Vital Signs 04/08/24 10:45 09/17/24 10:36 Height 5 ft 6 in 5 ft 6 in Weight: 175 lb 178 lb BMI 28.2 28.7 BP 136/92 H 143/84 H Blood Pressure Location Lt brachial Lt brachial Position Sitting Sitting Respiration 16 16 Pulse 64 67 Pulse Source NIBP NIBP Intake Visit Reasons: 4 M FU [employer] Required: No Is patient in pain?: No Allergies No Known Allergies Allergy (Verified 04/08/24 10:46) Medications ???Medication ???Instructions ???Recorded ???Confirmed ???Type aspirin 81 mg tablet,delayed 81 mg PO QDAY 06/12/17 09/17/24 Hi story release (Adult Low Dose Aspirin) multivitamin 1 tab PO DAILY 11/11/18 09/17/24 H istory omega-3 fatty acids 1,000 mg 1,000 mg PO DAILY 11/11/18 5 History capsule (Fish Oil Concentrate) atorvastatin 40 mg tablet 40 mg PO QDAY #90 tabs 08/25/24 Rx losartan 25 mg tablet 25 mg PO QDAY #90 tabs 09/17/24 Rx Ejection fraction %: 60 Have you fallen in the past year?: No PFSH Medical History Presence of stent in coronary artery ( 12/15/13) Peripheral vascular disease Atherosclerotic heart disease of [place] coronary artery without angina pectoris Essential hypertension Hyperlipidemia Other ocean transportation intermediary (current) drug therapy Angina pectoris Abnormal serum enzyme level Non-st elevation (nstemi) myocardial infarction Surgical History Presence of coronary angioplasty implant and graft ( 12/15/13) Hx of vasectomy Family History Mother CAD (coronary artery disease) Father CAD (coronary artery disease) Social History Smoking Status: Never smoker alcohol intake: current alcohol intake frequency: 0-2 drinks per day Alcohol type: beer substance use type: does not use caffeine: Yes Type: coffee Number of servings: 5 ROS Const Const: Negative for fatigue or weakness Eyes Eyes: Negative for change in vision ENT ENT: Negative for dizziness or balance problems Cardio Chest Pain: No Palpitations: No Edema: None Resp Respiratory: Negative for SOB with activity, SOB at rest or SOB orthopnea SOB lying down GI GI: Negative nausea or heartburn Musc Musc: Negative for balance problems Neuro Neuro: Positive for vertigo (Episode of vertigo a few days ago, resolved with dramamine); Negative for dizziness, lightheadedness, near syncope, syncope or weakness Endo Endo: Negative for fatigue Cardiology Exam Const Appearance: cooperative, healthy appearing, comfortable, no acute distress, well developed and well groomed Nutritional Appearance: average body habitus Head Head: normal to inspection, normocephalic and atraumatic Ears: hearing grossly normal bilaterally Nose: external nose normal Face and Sinus: face symmetric Eyes Eyelids: eyelids normal Conjunctivae: conjunctivae normal Pupils: PERRL EOM: EOM intact bilaterally Neck Neck: normal visual inspection and full ROM Carotids: normal carotid upstroke Chest Chest inspection: normal inspection of the chest, symmetric chest movement and normal respiratory effort Auscultation: Bilateral: Clear to Auscultation Cardio Palpation: normal PMI Rate: regular rate Rhythm: regular rhythm Heart sounds: S1 normal and S2 normal GI GI: normal to inspection, soft and bowel sounds present Neuro General: patient alert, patient awake, patient oriented x3 and moves all extremities Skin Skin: no rashes or lesions noted Extremities P (more content not included)... Normal [facility] LDL calc ser/plasOrdered By: Mandi Martines on 09-17-2024 Cholesterol in LDL [Mass/Vol] 117 mg/dL [facility] Comment on above: Dtrdqwkpxo=854-315 m g/dL & Higher Ydtz=162 mg/dL or greater Laboratory - Chemistry and C hemistry - challengeOrdered By: Mandi Martines on 09-17-2024 AST [Catalytic activity/Vol] 27 U/L <38 [facility] Screening total cholesterol/ high density lipoprotein (HDL) cholesterol ratioOrdered By: Mandi Martines on 09-17-2024 Cholesterol.total/Chol esterol in HDL [Mass ratio] 3.79 {ratio} [facility] Serum globulin measurementOr dered By: Mandi Martines on 09-17-2024 Globulin (S) [Mass/Vol] 1.8 g/dL Low 2.2-4.2 [facility] Serum or plasma alanine yoon otransferase (ALT) measurementOrdered By: Mandi Martines on 09-17-2024 ALT [Catalytic activity/Vol] 36 U/L <47 [facility] Serum or plasma albumin gabrielle urement (mass/volume)Ordered By: Mandi Martines on 09-17-2024 Albumin [Mass/Vol] 4.6 g/dL 3.4-4.8 [facility] Serum or plasma alkaline michelle sphatase measurementOrdered By: Mandi Martines on 09-17-2024 ALP [Catalytic activity/Vol] 36 U/L Low 40-129 [facility] Serum or plasma cholesterol in HDL measurement (mass/volume)Ordered By: Mandi Martines on 09-17-2024 Cholesterol in HDL [Mass/Vol] 52 mg/dL >40 [facility] Comment on above: National Cholesterol Education Program (NCEP) guidelines:<40 mg/dL: Low HDL-cholesterol (major risk factor for CHD)>= 60 mg/dL: High HDL-cholesterol (negative risk factor for CHD)HDL-cholesterol is affected by a number of factors, e.g. smoking, exercise, hormones, sex and age. Serum or plasma cholesterol measurement (mass/volume)Ordered By: Mandi Martines on 09-17-2024 Cholesterol [Mass/Vol] 198 mg/dL <201 [facility] Comment on above: Cholesterol level, D esirable <200 mg/dLBorderline high cholesterol 200-239 mg/dLHigh cholesterol >=240 mg/dLRecommendations of the NCEP Adult Treatment Panel for the following risk-cutoff thresholds for the [place] population. Total proteinOrdered By: Syed halina Bobbi on 09-17-2024 Protein [Mass/Vol] 6.4 g/dL 5.9-8.4 [facility] Triglycerides measurementOrd ered By: Mandi Martines on 09-17-2024 Triglyceride [Mass/Vol] 143 mg/dL <199 [facility] Comment on above: The drugs N-Acetylcy steine and Metamizole may falsely depress this assay. Normal range: <150 mg/dLBorderline High: 150-199 mg/dLHigh: 200-499 mg/dLVery High: >500 mg/dL Cardiology Visit Reporton Cardiology Visit Report [facility] [address] [place], [place] [address] OFFICE VISIT Date of Service: 04/08/24 MR#: [id number] Acct: [id number] Name: TERRY MADDEN Rep #: [id number] : 1955 Provider: IVA Ruano Age/Sex: 68/M Location: [facility] Status: Signed HPI HPI History of Present Illness Details: Terry Madden is a 68-year-old white male with a history of CAD, status post previous LCx PCI- (2013), hypertension and hyperlipidemia. He had a stress test in 04/2023, this was for arm numbness, this was negative for ischemia at a high workload. He retired in August. He has been active. He has not made it back to the gym. He notes that if he is really exerting, he will have some chest discomfort, this will go aware and only last a minute. He does not have any worsening SOB. He does not have any symptoms similar to what he had prior to his stent. He does not have any palpitations. He does not have ant lightheadedness/diz ziness. He does not have any claudication. Intake Vital Signs 04/06/23 09:00 04/08/24 10:45 Height 5 ft 6 in 5 ft 6 in Weight: 175 lb BMI 28.2 BP 136/92 H Blood Pressure Location Lt brachial Position Sitting Respiration 16 Pulse 64 Pulse Source NIBP Intake Visit Reasons: 1 Y FU/PREV PFM [employer] Required: No Accompanied by: Self Is patient in pain?: No Allergies No Known Allergies Allergy (Verified 04/08/24 10:46) Medications ???Medication ???Instructions ???Recorded ???Confirmed ???Type aspirin 81 mg tablet,delayed 81 mg PO QDAY 06/12/17 04/08/24 History release (Adult Low Dose Aspirin) multivitamin 1 tab PO DAILY 11/11/18 04/08/24 History omega-3 fatty acids 1,000 mg 1,000 mg PO DAILY 11/11/18 04/08/24 History capsule (Fish Oil Concentrate) metoprolol tartrate 25 mg tablet 25 mg PO BID #180 tabs 06/12/23 04/08/24 Rx atorvastatin 40 mg tablet 40 mg PO QDAY #90 tabs 06/25/23 04/08/24 Rx Have you fallen in the past year?: No PFSH Medical History Presence of stent in coronary artery ( 12/15/13) Peripheral vascular disease Atherosclerotic heart disease of [place] coronary artery without angina pectoris Essential hypertension Hyperlipidemia Other ocean transportation intermediary (current) drug therapy Angina pectoris Abnormal serum enzyme level Non-st elevation (nstemi) myocardial infarction Surgical History Presence of coronary angioplasty implant and graft ( 12/15/13) Hx of vasectomy Family History Mother CAD (coronary artery disease) Father CAD (coronary artery disease) Social History Smoking Status: Never smoker alcohol intake: current alcohol intake frequency: 0-2 drinks per day Alcohol type: beer substance use type: does not use caffeine: Yes Type: coffee Number of servings: 5 ROS Const Const: Negative for fatigue, weakness, fever(s) or headache(s) Eyes Eyes: Negative for blind spots, loss of peripheral vision or transient loss of vision ENT ENT: Negative for headache(s), dizziness, tinnitus, Nosebleed/epistaxis or balance problems Cardio Chest Pain: No Palpitations: No Edema: None Muscle aches with walking: None Resp Respiratory: Negative for SOB with activity, SOB at rest, SOB orthopnea SOB lying down or Cough GI GI: Negative nausea, vomiting, heartburn or vomiting blood/hematemesis : Negative for hematuria Musc Musc: Negative for muscle aches/ myalgia, muscle weakness, joint pain or balance problems Neuro Neuro: Negative for dizziness, lightheadedness, near syncope, syncope, orthostatic symptoms, headache(s) or weakness Trace Hematologic/Lymphat ic: Negative for easy bleeding Endo Endo: Negative for fatigue Cardiology Exam Const Appearance: cooperative, healthy appearing, comfortable, no acute distress, well developed and well groomed Nutritional Appearance: average body habitus Head Head: normal to inspection, normocephalic and atraumatic Ears: hearing grossly normal bilaterally Nose: external nose normal Face and Sinus: face symmetric Eyes Eyelids: eyelids normal Conjunctivae: conjunctivae normal Pupils: PERRL EOM: EOM intact bilaterally Neck Neck: normal visual inspection and full ROM Carotids: normal carotid upstroke Chest Chest inspection: normal inspection of the chest, symmetric chest movement and normal respiratory effort Auscultation: Bilateral: Clear to Auscultation Cardio Palpation: normal PMI Rate: regular rate Rhythm: regular rhythm Heart sounds: S1 normal and S2 normal GI GI: normal to inspection, soft and bowel sound (more content not included)... Normal [facility] Lipid Profileon 03-17-2024 Cholesterol [Mass/Vol] 172 mg/dL Normal 200 [facility] Comment on above: Result Comment: <200 mg/dL Desirable 200-240 mg/dL Borderline >240 mg/dL High Risk Performed By: #### L 500.2480, L500.4100 #### [facility] [place], [address] Cholesterol in HDL [Mass/Vol] 47 mg/dL Normal [facility] Comment on above: Result Comment: The drugs N-Acetylcysteine and Metamizole may falsely depress this assay. Reference Range HDL <40 mg/dL Low HDL Cholesterol HDL >or= 60 mg/dL High HDL Cholesterol Performed By: #### L 500.3400, L500.4100 #### [facility] [address] [place], [address] Cholesterol in LDL [Mass/Vol] 94 mg/dL Normal 0-130 [facility] Comment on above: Performed By: #### L 500.3400, L500.4100 #### [facility] [address] [place], [address] Cholesterol in VLDL [Mass/Vol] 31 mg/dL Normal 5-40 [facility] Comment on above: Performed By: #### L 500.3400, L500.4100 #### [facility] [address] [place], [address] Triglyceride [Mass/Vol] 155 mg/dL Normal [facility] Comment on above: Result Comment: The drugs N-Acetylcysteine and Metamizole may falsely depress this assay. Serum Triglycerides Reference Interval Normal <150 mg/dL Borderline high 150 - 199 mg/dL High 200 - 499 mg/dL Very High > or = 500 mg/dL Performed By: #### L 500.3400, L500.4100 #### [facility] [address] [place], [address] Liver Profileon 03-17-2024 Albumin [Mass/Vol] 3.8 g/dL Normal 3.2-5.0 [facility] Comment on above: Performed By: #### L 500.3400, L500.4100 #### [facility] [address] [place], [address] ALK P 34 U/L Low 45-117 [facility] Comment on above: Performed By: #### L 500.3400, L500.4100 #### [facility] [address] [place], [address] ALT [Catalytic activity/Vol] 33 U/L Normal 16-61 [facility] Comment on above: Performed By: #### L 500.3400, L500.4100 #### [facility] [address] [place], [address] AST [Catalytic activity/Vol] 19 U/L Normal 15-37 [facility] Comment on above: Performed By: #### L 500.3400, L500.4100 #### [facility] [address] [place], [address] Bilirubin [Mass/Vol] 0.50 mg/dL Normal 0.20-1.00 [facility] Comment on above: Result Comment: For patients on eltrombopag therapy, use of Dimension [place] TBIL is not recommended. Performed By: #### L 500.3400, L500.4100 #### [facility] [address] [place], [address] Bilirubin.direct [Mass/Vol] 0.14 mg/dL Normal 0.00-0.30 [facility] Comment on above: Performed By: #### L 500.3400, L500.4100 #### [facility] [address] [place], [address] Globulin (S) [Mass/Vol] 3.3 g/dL Normal 2.2-4.2 [facility] Comment on above: Performed By: #### L 500.3400, L500.4100 #### [facility] [address] [place], [address] T PROT 7.1 g/dL Normal 6.4-8.2 [facility] Comment on above: Performed By: #### L 500.3400, L500.4100 #### [facility] [address] [place], [address] Basophil percentageOrdered B y: Deven Irwin on 12-11-2022 Bilirubin [Mass/Vol] 0.60 mg/dL 0.20-1.00 [facility] Comment on above: For patients on eltr ombopag therapy, use of Dimension [place] TBIL is not recommended. Cholesterol [Mass/Vol] 172 mg/dL <200 [facility] Comment on above: <200 mg/dL Desirable 200-240 mg/dL Borderline >240 mg/dL High Risk Protein [Mass/Vol] 7.5 g/dL 6.4-8.2 [facility] Triglyceride [Mass/Vol] 95 mg/dL <199 [facility] Comment on above: The drugs N-Acetylcy steine and Metamizole may falsely depress this assay.Serum Triglycerides Reference Interval Normal <150 mg/dL Borderline high 150 - 199 mg/dL High 200 - 499 mg/dL Very High > or = 500 mg/dL Direct bilirubinOrdered By: Deven Irwin on 12-11-2022 Bilirubin.direct [Mass/Vol] 0.17 mg/dL 0.00-0.30 [facility] - Chemistry and C hemistry - challengeOrdered By: Deven Irwin on 12-11-2022 ALP [Catalytic activity/Vol] 39 U/L 45-117 [facility] ALT [Catalytic activity/Vol] 27 U/L 16-61 [facility] Globulin (S) [Mass/Vol] 3.7 g/dL 2.2-4.2 [facility] Serum or plasma albumin gabrielle urement (mass/volume)Ordered By: Deven Irwin on 12-11-2022 Albumin [Mass/Vol] 3.8 g/dL 3.2-5.0 [facility] Serum or plasma cholesterol in HDL measurement (mass/volume)Ordered By: Deven Irwin on 12-11-2022 Cholesterol in HDL [Mass/Vol] 56 mg/dL >40 [facility] Comment on above: The drugs N-Acetylcy steine and Metamizole may falsely depress this assay. Reference Range HDL <40 mg/dL Low HDL Cholesterol HDL >or= 60 mg/dL High HDL Cholesterol Serum or plasma cholesterol in VLDL measurement (mass/volume)Ordered By: Deven Irwin on 12-11-2022 Cholesterol in VLDL [Mass/Vol] 19 mg/dL 5-40 [facility] Serum or plasma low density lipoprotein (LDL) cholesterol measurement (mass/volume)Ordered By: Deven Irwin on 12-11-2022 Cholesterol in LDL [Mass/Vol] 97 mg/dL 0-130 [facility] Thin prep Papanicolaou smear with manual screeningOrdered By: Deven Irwin on 12-11-2022 Thin prep Papanicolaou smear with manual screening 20 U/L 15-37 [facility] Basophil percentageon 2021 Bilirubin [Mass/Vol] 0.40 mg/dL 0.20-1.00 [facility] Work Phone: Comment on above: For patients on eltr ombopag therapy, use of Dimension [place] TBIL is not recommended. Cholesterol [Mass/Vol] 152 mg/dL <200 [facility] Work Phone: Comment on above: <200 mg/dL Desirable 200-240 mg/dL Borderline >240 mg/dL High Risk Protein [Mass/Vol] 7.0 g/dL 6.4-8.2 [facility] Work Phone: Triglyceride [Mass/Vol] 137 mg/dL <199 [facility] Work Phone: Comment on above: The drugs N-Acetylcy steine and Metamizole may falsely depress this assay.Serum Triglycerides Reference Interval Normal <150 mg/dL Borderline high 150 - 199 mg/dL High 200 - 499 mg/dL Very High > or = 500 mg/dL Direct bilirubinon 2 Bilirubin.direct [Mass/Vol] 0.11 mg/dL 0.00-0.30 [facility] Work Phone: Laboratory - Chemistry and C hemistry - challengeon 11-10-2021 ALP [Catalytic activity/Vol] 33 U/L 45-117 [facility] Work Phone: ALT [Catalytic activity/Vol] 26 U/L 16-61 [facility] Work Phone: Globulin (S) [Mass/Vol] 3.2 g/dL 2.2-4.2 [facility] Work Phone: Serum or plasma albumin gabrielle urement (mass/volume)on 11-10-2021 Albumin [Mass/Vol] 3.8 g/dL 3.2-5.0 [facility] Work Phone: Serum or plasma cholesterol in HDL measurement (mass/volume)on 11-10-2021 Cholesterol in HDL [Mass/Vol] 49 mg/dL >40 [facility] Work Phone: Comment on above: The drugs N-Acetylcy steine and Metamizole may falsely depress this assay. Reference Range HDL <40 mg/dL Low HDL Cholesterol HDL >or= 60 mg/dL High HDL Cholesterol Serum or plasma cholesterol in VLDL measurement (mass/volume)on 11-10-2021 Cholesterol in VLDL [Mass/Vol] 27 mg/dL 5-40 [facility] Work Phone: Serum or plasma low density lipoprotein (LDL) cholesterol measurement (mass/volume)on 11-10-2021 Cholesterol in LDL [Mass/Vol] 76 mg/dL 0-130 [facility] Work Phone: Thin prep Papanicolaou smear with manual screeningon 11-10-2021 Thin prep Papanicolaou smear with manual screening 16 U/L 15-37 [facility] Work Phone: Lab Report: Lipid Profileon 06-12-2017 Cholesterol 173 mg/dL Invalid Interpretation Code 200 [facility] Work Phone: [phone] HDL Cholesterol 48 mg/dL Invalid Interpretation Code [facility] Work Phone: [phone] LDL Cholesterol 91 mg/dL Invalid Interpretation Code 0-130 [facility] Work Phone: [phone] Triglyceride 170 mg/dL Invalid Interpretation Code [facility] Work Phone: [phone] very low density lipoproteins 34 mg/dL Invalid Interpretation Code 5-40 [facility] Work Phone: [phone] Lab Report: Liver Profileon 06-12-2017 Alanine aminotransferase (ALT) 39 U/L Invalid Interpretation Code 16-61 [facility] Work Phone: [phone] Albumin 4.1 g/dL Invalid Interpretation Code 3.2-5.0 [facility] Work Phone: [phone] Alkaline phosphatase (ALP) 34 U/L Low 45-117 [facility] Work Phone: [phone] Aspartate aminotransferase (AST) 22 U/L Invalid Interpretation Code 15-37 [facility] Work Phone: [phone] Bilirubin (direct) 0.08 mg/dL Invalid Interpretation Code 0.00-0.30 [facility] Work Phone: [phone] Bilirubin (total) 0.40 mg/dL Invalid Interpretation Code 0.20-1.00 [facility] Work Phone: [phone] Globulin 3.8 g/dL Invalid Interpretation Code 2.2-4.2 [facility] Work Phone: [phone] Protein 7.9 g/dL Invalid Interpretation Code 6.4-8.2 [facility] Work Phone: [phone] Office Visiton 12-18-2016 Documentation of current medications (procedure) Done Invalid Interpretation Code [facility] Phone: [phone] Fall risk assessment No Invalid Interpretation Code [facility] Phone: [phone] Replaced Document: Patrickpolo E CG Observationson 12-18-2016 electrocardiogram interpretation Sinus Bradycardia Low voltage in precordial leads. ABNORMAL Invalid Interpretation Code [facility] Phone: [phone] GE use only - for [employer] import when terms are not otherwise specified 403 ms Invalid Interpretation Code [facility] Phone: [phone] P wave axis, electrocardiogram 61 deg Invalid Interpretation Code [facility] Phone: [phone] RI interval, electrocardiogram 174 ms Invalid Interpretation Code [facility] Work Phone: [phone] Pulse (Heart Rate) 58 /min Invalid Interpretation Code [facility] Phone: [phone] QRS axis, electrocardiogram 23 deg Invalid Interpretation Code [facility] Phone: [phone] QRS duration, electrocardiogram 90 ms Invalid Interpretation Code [facility] Phone: [phone] QT interval, electrocardiogram new path ms Invalid Interpretation Code [facility] Phone: [phone] T wave axis, electrocardiogram 16 deg Invalid Interpretation Code [facility] Phone: [phone] Lab Report: Lipid Profileon 12-11-2016 Cholesterol 205 mg/dL High 200 [facility] Work Phone: [phone] HDL Cholesterol 57 mg/dL Invalid Interpretation Code [facility] Work Phone: [phone] LDL Cholesterol 118 mg/dL Invalid Interpretation Code 0-130 [facility] Work Phone: [phone] Triglyceride 150 mg/dL Invalid Interpretation Code [facility] Phone: [phone] very low density lipoproteins 30 mg/dL Invalid Interpretation Code 5-40 [facility] Work Phone: [phone] Lab Report: Liver Profileon 12-11-2016 Alanine aminotransferase (ALT) 24 U/L Invalid Interpretation Code 12-78 [facility] Work Phone: [phone] Albumin 4.1 g/dL Invalid Interpretation Code 3.4-5.0 [facility] Phone: [phone] Alkaline phosphatase (ALP) 33 U/L Low 45-117 [facility] Work Phone: [phone] Aspartate aminotransferase (AST) 16 U/L Invalid Interpretation Code 15-37 [facility] Work Phone: [phone] Bilirubin (direct) 0.16 mg/dL Invalid Interpretation Code 0.00-0.30 [facility] Work Phone: [phone] Bilirubin (total) 0.70 mg/dL Invalid Interpretation Code 0.20-1.00 [facility] Work Phone: [phone] Globulin 3.8 g/dL High 2.3-3.5 [facility] Work Phone: [phone] Protein 7.9 g/dL Invalid Interpretation Code 6.4-8.2 [facility] Phone: [phone] Office Visit: [facility] 06-14-19 17 Documentation of current medications (procedure) Done Invalid Interpretation Code [facility] Work Phone: [phone] 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 Left ventricular Ejection fraction 60 % Invalid Interpretation Code [facility] Work Phone: [phone] Office Visiton 12-17-2015 Dietary management education, guidance, and counseling (procedure) yes Invalid Interpretation Code [facility] Work Phone: [phone] Office Visit: [facility] 05-25-19 16 Tobacco smoking status NHIS Tobacco smoking status NHIS Invalid Interpretation Code [place] [facility] Work Phone: [phone] Tobacco use [facility] Never smoker Invalid Interpretation Code [facility] Work Phone: [phone] Replaced Document: [email or web address] Observationson 05-25-2015 electrocardiogram interpretation Sinus Bradycardia WITHIN NORMAL LIMITS Invalid Interpretation Code [facility] Work Phone: [phone] GE use only - for [employer] import when terms are not otherwise specified 400 ms Invalid Interpretation Code [facility] Work Phone: [phone] P wave axis, electrocardiogram 63 deg Invalid Interpretation Code [facility] Work Phone: [phone] RI interval, electrocardiogram 186 ms Invalid Interpretation Code [facility] Work Phone: [phone] Pulse (Heart Rate) 53 /min Invalid Interpretation Code [facility] Work Phone: [phone] QRS axis, electrocardiogram 33 deg Invalid Interpretation Code [facility] Work Phone: [phone] QRS duration, electrocardiogram 89 ms Invalid Interpretation Code [facility] Work Phone: [phone] QT interval, electrocardiogram new path ms Invalid Interpretation Code [facility] Work Phone: [phone] T wave axis, electrocardiogram 27 deg Invalid Interpretation Code [facility] Work Phone: [phone] External Other: Preferred Me thod of Contacton 11-23-2014 Patient's prefered method of contact Secure Message Invalid Interpretation Code [place] [facility] Work Phone: [phone] Office Visit: [facility] 06-12-19 15 cardiac risk group C Invalid Interpretation Code [facility] Work Phone: [phone] General cardiovascular disease 10Y risk [#] [place].D'Agostino N/A Invalid Interpretation Code [facility] Work Phone: [phone] Tobacco smoking status NHIS Never Invalid Interpretation Code [facility] Work Phone: [phone] Replaced Document: [email or web address] [facility] [employer] Observationson 01-01-2014 Pulse (Heart Rate) 381 ms Invalid Interpretation Code [facility] Work Phone: [phone] Vital Signs Date Time Vital Sign Value Performing Clinician Faci lity 05-21-2025 10:36-0400 Body height 167.[address] Favian Corona MD Work Phone: [facility] 09-17-2024 10:36-0400 Body mass index (BMI) [Ratio] 28.7 kg/m2 Dr. Favian Corona MD Work Phone: [facility] 09-17-2024 10:36-0400 Body weight 80.[address] Favian Corona MD Work Phone: [facility] 09-17-2024 10:36-0400 Diastolic blood pressure 84 mm[Hg] Dr. Favian Corona MD Work Phone: [phone] [address] 09-17-2024 10:36-0400 Heart rate 67 /min Dr. Favian Corona MD Work Phone: [phone] [place] [address] 09-17-2024 10:36-0400 Respiratory rate 16 /min Dr. Favian Corona MD Work Phone: [facility] 09-17-2024 10:36-0400 Systolic blood pressure 143 mm[Hg] Dr. Favian Corona MD Work Phone: [facility] 04-06-2023 09:00-0500 Body height 167.[address] Jose Luis Corona Work Phone: [facility] 04-06-2023 09:00-0500 Body mass index (BMI) [Ratio] 27.1 kg/m2 Dr. Jose Luis Corona Work Phone: [facility] 04-06-2023 09:00-0500 Body weight 76.[address] Jose Luis Corona Work Phone: [facility] 04-06-2023 09:00-0500 Diastolic blood pressure 91 mm[Hg] Dr. Jose Luis Corona Work Phone: [facility] 04-06-2023 09:00-0500 Heart rate 62 /min Dr. Jose Luis Corona Work Phone: [facility] 04-06-2023 09:00-0500 Respiratory rate 18 /min Dr. Jose Luis Corona Work Phone: [facility] 04-06-2023 09:00-0500 SaO2% (BldA) [Mass fraction] 98 % Dr. Jose Luis Corona Work Phone: [facility] 04-06-2023 09:00-0500 Systolic blood pressure 134 mm[Hg] Dr. Jose Luis Corona Work Phone: [facility] 12-18-2016 09:29-0400 BMI (Body Mass Index) 26.88 kg/m2 [facility] Work Phone: 12-18-2016 09:29-0400 BP Diastolic 72 mm[Hg] Harumi DeFinchristian [place] [facility] Work Phone: 12-18-2016 09:29-0400 BP Systolic 114 mm[Hg] Harumi DeFinis [place] [facility] Work Phone: 12-18-2016 09:29-0400 Height 167.64 cm Harcandelario DeFinis [place] [facility] Work Phone: 12-18-2016 09:29-0400 Pulse (Heart Rate) 58 /min Harumi DeFinis [place] [facility] Work Phone: 12-18-2016 09:29-0400 Respiratory Rate 17 /min Harumi DeFinis [place] [facility] Work Phone: 12-18-2016 09:29-0400 Weight 75.55 kg Harumi DeFinis [place] [facility] Work Phone: 06-14-2016 08:50-0500 BMI (Body Mass Index) 26.5 kg/m2 Deven Irwin MD [facility] Work Phone: 06-14-2016 08:50-0500 BP Diastolic 82 mm[Hg] Deven Irwin MD [place] Work Phone: 06-14-2016 08:50-0500 BP Systolic 112 mm[Hg] Deven Irwin MD [facility] [facility] Work Phone: 06-14-2016 08:50-0500 BSA (Body Surface Area) 1.84 m2 Deven Irwin MD [place] [facility] Work Phone: 06-14-2016 08:50-0500 Pulse (Heart Rate) 60 /min [facility] Work Phone: 06-14-2016 08:50-0500 Respiratory Rate 16 /min Deven Irwin MD [place] [facility] Work Phone: 06-14-2016 08:50-0500 Weight 74.48 kg Deven Irwin MD [facility] [facility] Work Phone: 01-01-2014 11:09-0400 Height 167.64 cm Deven Irwin MD [place] [facility] Work Phone: Encounters Encounter Date Encounter Type Care Provider Facility Start: 09-17-2024 End: 09-17-[address] Favian Corona MD Work Phone: [facility] Work Phone: Start: 09-17-2024 End: 09-17-2024 Patient encounter procedure Mandi Martines PA -Laboratory Work Phone: Start: 09-17-2024 End: 09-17-2024 Patient encounter procedure Mandi Martines PA -[facility] [facility] Work Phone: Start: 09-17-2024 End: 09-17-[address] Favian Corona MD Work Phone: [facility] Work Phone: Start: 09-17-2024 End: 09-17-2024 ambulatory Favian Corona Facility:[facility] Start: 04-08-2024 End: 04-08-2024 ambulatory Favian Corona Facility:[facility] [place] Start: 03-17-2024 End: 03-17-2024 ambulatory Sun Roche NP Facility:[facility] Start: 05-09-2023 Non-patient / Non-visit Dr. Jose Luis Corona Work Phone: [facility] Start: 05-09-2023 End: 05-09-[address] Jose Luis Corona Work Phone: [facility] Work Phone: Start: 05-09-2023 End: 05-09-[address] [facility] Work Phone: Start: 05-02-2023 Non-patient / Non-visit Dr. Jose Luis Corona Work Phone: [facility] Start: 05-02-2023 End: 05-02-[address] Jose Luis Corona Work Phone: [facility] Work Phone: Start: 05-02-2023 End: 05-02-[address] [facility] Work Phone: Start: 04-06-2023 End: 04-06-[address] Jose Luis Corona Work Phone: [facility] Work Phone: Start: 12-11-2022 End: 12-11-2022 ambulatory [facility] Work Phone: Start: 12-11-2022 End: 12-11-2022 [facility] Start: 11-10-2021 End: 11-10-2021 Patient encounter procedure [facility] Procedures Date Procedure Procedure Detail Performing Clinician Start: 05-09-2023 Radionuclide imaging of perfusion of myocardium under exercise stress Dr. Jose Luis Corona Work Phone: Start: 03-13-2017 End: 06-12-2017 *Hepatic [...] 06-14-2016 Follow Up Appt Other Polo Spann [employer] Start: 06-14-2016 End: 06-14-2016 PFM Polo Spann [employer] Start: 05-19-2016 End: 05-23-2016 *Hepatic Function Panel [...] Author Start: 06-18-2017 End: 06-18-2017 Appointment Appointment [facility] Work Phone: Start: 03-13-2017 End: 06-12-2017 *Hepatic Function Panel *Hepatic Function Panel [facility] Work Phone: Start: 03-13-2017 End: 06-12-2017 Lipid panel [AGGREGATE] *Lipid Profile CC PCP [facility] Work Phone: Start: 12-18-2016 End: 12-18-2016 Appointment Appointment [facility] Work Phone: Start: 12-18-2016 End: 12-18-2016 Electrocardiogram, complete EKG (In office) [facility] Work Phone: Start: 12-18-2016 End: 12-18-2016 Follow Up Appt 6 months Follow Up Appt 6 months [facility] Work Phone: Start: 12-18-2016 End: 12-18-2016 MMM MMM [facility] Work Phone: Start: 11-22-2016 End: 12-11-2016 *Hepatic Function Panel *Hepatic Function Panel [facility] Work Phone: Start: 11-22-2016 End: 12-11-2016 Lipid panel [AGGREGATE] *Lipid Profile CC PCP [facility] Work Phone: Start: 06-14-2016 End: 06-14-2016 Follow Up Appt Other Follow Up Appt Other [facility] Work Phone: Start: 06-14-2016 End: 06-14-2016 PFM PFM [facility] Work Phone: Start: 05-19-2016 End: 05-23-2016 *Hepatic Function Panel *Hepatic Function Panel [facility] Work Phone: Start: 05-19-2016 End: 05-23-2016 Lipid panel [AGGREGATE] *Lipid Profile CC PCP [facility] Work Phone: Start: 12-17-2015 End: 12-17-2015 Follow Up Appt 6 months Follow Up Appt 6 months [facility] Work Phone: Start: 12-17-2015 End: 12-17-2015 MMM MMM [facility] Work Phone: Start: 11-10-2015 End: 11-22-2015 *Hepatic Function Panel *Hepatic Function Panel [facility] Work Phone: Start: 11-10-2015 End: 11-22-2015 Lipid panel [AGGREGATE] *Lipid Profile CC PCP [facility] Work Phone: Start: 05-25-2015 End: 05-25-2015 Follow Up Appt 6 months Follow Up Appt 6 months [facility] Work Phone: Start: 05-25-2015 End: 05-25-2015 PF PFM [facility] Work Phone: Start: 05-07-2015 End: 05-12-2015 *Hepatic Function Panel *Hepatic Function Panel [facility] Work Phone: Start: 05-07-2015 End: 05-12-2015 Lipid panel [AGGREGATE] *Lipid Profile CC PCP [facility] Work Phone: Start: 11-23-2014 End: 11-23-2014 Follow Up Appt 6 months Follow Up Appt 6 months [facility] Work Phone: Start: 11-23-2014 End: 11-23-2014 MM MMM [facility] Work Phone: Start: 09-26-2014 End: 11-04-2014 *Hepatic Function Panel *Hepatic Function Panel [facility] Work Phone: Start: 09-26-2014 End: 11-04-2014 Lipid panel [AGGREGATE] *Lipid Profile CC PCP [facility] Work Phone: Start: 06-12-2014 End: 06-12-2014 Follow Up Appt Other Follow Up Appt Other [facility] Work Phone: Start: 06-12-2014 End: 06-12-2014 PF PF [facility] Work Phone: Start: 03-03-2014 End: 03-10-2014 *Hepatic Function Panel *Hepatic Function Panel [facility] Work Phone: Start: 03-03-2014 End: 03-03-2014 Cardiac Rehab Cardiac Rehab [facility] Work Phone: Start: 03-03-2014 End: 03-03-2014 Cardiovascular stress test using treadmill Treadmill stress test (no imaging) [facility] Phone: Start: 03-03-2014 End: 03-03-2014 Follow Up Appt 3 months Follow Up Appt 3 months [employer] Work Phone: Start: 03-03-2014 End: 03-03-2014 Follow Up Appt 6 months Follow Up Appt 6 months [employer] Work Phone: Start: 03-03-2014 End: 03-10-2014 Lipid panel [AGGREGATE] *Lipid Profile CC PCP [facility] Work Phone: Start: 03-03-2014 End: 03-03-2014 MMM MMM [facility] Work Phone: Start: 03-03-2014 End: 03-03-2014 PFM PFM [facility] Work Phone: Start: 01-01-2014 End: 03-03-2014 *Hepatic Function Panel *Hepatic Function Panel Patient Communicator Phone: Start: 01-01-2014 End: 01-01-2014 Electrocardiogram, complete EKG (In office) [facility] Work Phone: Start: 01-01-2014 End: 01-01-2014 Follow Up Appt 6 weeks Follow Up Appt 6 weeks [facility] Phone: Start: 01-01-2014 End: 03-03-2014 Lipid panel [AGGREGATE] *Lipid Profile CC PCP [facility] Work Phone: Start: 01-01-2014 End: 01-01-2014 MMM MMM [facility] Work Phone: Start: 12-19-2013 End: 01-01-2014 Arterial exam Arterial exam [facility] Work Phone: Start: 12-19-2013 End: 12-19-2013 Vascular Surgery Vascular Surgery William Shields, [address] [place] [address], [address], [place], [address] [facility] Work Phone: Hepatic function panel [facility] Lipid 1996 panel - S manuel or Plasma [facility] Patient Education [facility] Work Phone: Radionuclide imaging of perfusion of myocardium under exercise stress [facility] Immunizations Immunization Date Immunization Notes Care Provider Fa cility 06-09-2021 Covid (Pfizer) [facility] 08-24-2020 Covid (Pfizer) [facility] 08-03-2020 Covid (Pfizer) [facility] Payers Date Payer Category Payer Self-pay [id number] 2023 [employer] ( and others) [id number] 2023 Medicare [id number] Unknown [id number] Unknown [id number] Social History Date Type Detail Facility Start: 11-15-2020 End: 04-06-2023 Tobacco smoking status NHIS Unknown if ever smoked [facility] Start: 12-12-2013 None [facility] Start: 12-12-2013 Spouse/ Signif icant Other;- [facility] Start: 1955 Sex Assigned At Male W [facility] Start: 04-06-2023 Tobacco smoking status NHIS Never smoked tobacco (finding) [facility] Procedure note 05-02-2023 Note Date & Type Note Facility 05-02-2023 Procedure note [facility] Evaluation note 11-28-2013 Note Date & Type Note Facility 11-28-2013 Evaluation note Diagnosis Onset Date Presence of stent in coronar y artery November, acute Essential hypertension chron ic Hyperlipidemia chronic [facility] Work Phone: Evaluation note 11-28-2013 Note Date & Type Note Facility 11-28-2013 Evaluation note Diagnosis Onset Date Resolution Presence of stent in coronary artery November, acute September 17, 2024 10:25am Essential hypertension chronic September 17, 2024 10:25am Hyperlipidemia chronic September 17, 2024 10:25am [employer] Work Phone: Evaluation note Note Date & Type Note Facility Evaluation note No assessment information availa [facility] Work Phone: Reason for referral (narrative) Note Date & Type Note Facility Reason for referral (narrative) No reason for referral information available [employer] Work Phone: Chief Complaint and Reason for Visit Chief Complaint E ORDER Chief Complaint INT LABS Chief Complaint 1 Y FU PAIN IN LEFT AND RIGHT HAND PAIN IN LEFT AND RIGHT HAND Reason for Visit Presence of stent in coronary artery Essential hypertension Hyperlipidemia Chief Complaint 1 Y FU PAIN IN LEFT AND RIGHT HAND PAIN IN LEFT AND RIGHT HAND Presence of coronary angioplasty implant and graft Presence of coronary angioplasty implant and graft Reason for Visit Presence of stent in coronary artery Essential hypertension Hyperlipidemia Chief Complaint Admit Date 4 M FU September 17, 2024 10:25 am Reason for Visit Admit Date Presence of stent in coronary artery September 17, 2024 10:25am Essential hypertension September 17, 2024 10 :25am Hyperlipidemia September 17, 2024 10:25 am Family History No Family History Records Found Relationship Condition Age at Onset Recorded Date/T belen mother Coronary artery disease Unknown father Coronary artery disease Unknown Advance Directives No Advanced Directives Records Found Advance Directive Response Recorded Date/ Time Advance Directives No December 15, 2013 9:32am Living Will Yes September 25, 2017 3 :40pm Power of [place] [employer] Yes September 25, 2017 3:40pm Advance Directive Response Recorded Date/ Time Advance Directives No September 13 4:30pm Living Will Yes September 13, 2022 4 :30pm Power of [place] [employer] Yes September 13, 2022 4:30pm Advance Directive Response Recorded Date/ Time Advance Directives No September 13 3:30pm Living Will Yes September 13, 2022 3 :30pm Power of [place] [employer] Yes September 13, 2022 3:30pm Advance Directive Response Recorded Date/ Time Advance Directives No September 13 4:30pm Summary Purpose Additional Source Comments Goals (unrecognized section and content) Goals may be documented in a n alternate sectionGoals may be documented in an alternate sectionGoals may be documented in an alternate sectionGoals may be documented in an alternate sectionGoals may be documented in an alternate sectionGoals may be documented in an alternate section Care Teams (unrecognized sec tion and content) Team Status: Active Member Role Status Dates Dr. Jose Luis oCrona MD Family Provider Active Dr. Jose Luis Corona MD Primary Care Provider Activ e Team Status: Inactive Member Role Status Dates Sun Roche PURCHASING SPECIALIST, PURCHASING SPECIALIST-C Attending Provider, Referring P wisam Active Dr. Jose Luis Corona MD Primary Care Provider Activ e Team Status: Inactive Member Role Status Dates Dr. Jose Luis Corona MD Primary Care Provider, Refe rring Provider Active Mandi ENRIQUE PA Attending Provider Active Team Status: Active Member Role Status Dates Dr. Jose Luis Corona MD Primary Care Provider Activ e Kelvin ENRIQUE PA-C Referring Provider, Other Provid er Active Dr. Michael Hercules MD Attending Provider Active Team Status: Inactive Member Role Status Dates Dr. Jose Luis Corona MD Primary Care Provider Activ e Kelvin ENRIQUE PA-C Attending Provider, Referring Pr ovider Active Team Status: Active Member Role Status Dates Dr. Jose Luis Corona MD Primary Care Provider Activ e Dr. Hussain Tee MD Attending Provider, Referring Provider, Other Provider Active Team Status: Inactive Member Role Status Dates Dr. Jose Luis Corona MD Primary Care Provider Activ e Dr. Hussain Tee MD Attending Provider, Referring Pro vider Active Team Status: Active Member Role Status Dates Dr. Favian Corona MD Family Provider Active Dr. Favian Corona MD Primary Care Provider Acti ve Team Status: Inactive Member Role Status Dates Dr. Favian Corona MD Primary Care Provider Acti ve Start: September 17, 2024 End: September 17, 2024 Dr. Favian Corona MD Referring Provider Active Start: September 17, 2024 End: September 17, 2024 Mandi ENRIQUE PA Attending Provider Active Start: September 17, 2024 End: September 17, 2024 Team Status: Inactive Member Role Status Dates Dr. Favian Corona MD Primary Care Provider Acti ve Start: September 17, 2024 End: September 17, 2024 Mandi ENRIQUE PA Attending Provider Active Start: September 17, 2024 End: September 17, 2024 IVA Cronin Referring Provider Active Start: September 17, 2024 End: September 17, 2024 (unrecognized sect ion and content) No Status Records Found INFORMATION SOURCE (unrecogn ized section and content) DATE CREATED AUTHOR 09/27/2024 [facility] FOR RECORDS PERTAINING TO PATIENTS WHO ARE [...] BE BASED ON THE PRIMARY CLINICAL RECORDS. [facility] [employer] provides no warranty or guarantee of the accuracy or completeness of information in this document.
[2024-12-16 23:31] LABS: Xtra Tube Kwok EXTRA TUBE
== END | disposition home or self-care (01) ==
LOC: POLAB3 15:30
PROVIDERS: PCP Family Medicine Geriatric Medicine; Visit Provider Family Medicine Geriatric Medicine
DX: Z12.5 Encounter for screening for malignant neoplasm of prostate (principal); E55.9 Vitamin D deficiency, unspecified; I10 Essential (primary) hypertension; E78.5 Hyperlipidemia, unspecified
CPT/HCPCS: 36415; 80053; 80061; 82306; 84153; 84443; 85025; 86803; G0103

== ENCOUNTER → 2025-01-13 | Outpatient (CLI) | payer MEDICARE, OTHER, SELFPAY ==
--- NOTE | 2025-01-13 14:04 | US_ITS ---
PROCEDURE: THYROID 01/13/2025 REASON FOR EXAM: NONTOXIC SINGLE THYROID NODULE TECHNIQUE: Procedure Code: USTHY Modality: US Procedure: THYROID COMPARISON: None FINDINGS: Right thyroid lobe size: 4.3 cm 1.8 cm x 2 cm Left thyroid lobe size: 3.8 cm 1.4 cm 1.3 cm Isthmus: 0.5 cm Background parenchymal echotexture is homogeneous. Nodules: . Lobe: Right, Location: Midpole, Size: 1.6 cm 1.4 cm 1.4 cm, Stability: N/A Composition: Mixed cystic and solid (+1) Echogenicity: Hypoechoic (+2) Margin: Smooth (+0) Shape: Wider than tall (+0) Echogenic Foci: None (+0) TI-RADS: 3 US/Thyroid IMPRESSION: Complex 1.6 cm 1.4 cm 1.4 cm nodular density in the midpole of the right lobe o f the thyroid. Biopsy recommended if not already performed. RECOMMENDATION: Based on most suspicious nodule. Nodule size = largest diameter Only evaluate nodule if =>5 mm. Growth > 20% in 2 dimensions = worsening. Follow up to 4 nodules. Recommend biopsy for no more than 2 nodules. Reading Location: [place] [id number]
== END | disposition home or self-care (01) ==
PROVIDERS: PCP Family Medicine Geriatric Medicine; Referring Provider Family Medicine Geriatric Medicine; Visit Provider Family Medicine Geriatric Medicine
DX: E04.1 Nontoxic single thyroid nodule (principal)
CPT/HCPCS: 76536

== ENCOUNTER → 2025-03-11 | Outpatient (CLI) | payer MEDICARE, OTHER, SELFPAY ==
[2025-03-11 17:30] LABS: AST(SGOT) 29 U/L (<=37); Alanine Aminotransfer ALT/SGPT 31 U/L (<=46); Albumin, Serum 4.6 g/dL (3.4-4.8); Alkaline Phosphatase 29 U/L (40-129); Bilirubin, Direct 0.22 mg/dL (0.00-0.30); Cholesterol 145 mg/dL (<=200); Globulin 2.8 g/dL (2.2-4.2); Low Density Lipoprotein Calc. 69 mg/dL; Triglycerides 122 mg/dL; Very Low Density Lipoprotein 24 mg/dL (5-40); cholesterol:hdl ratio screen 2.68
== END | disposition home or self-care (01) ==
LOC: LAB 15:53
PROVIDERS: PCP Family Medicine Geriatric Medicine; Referring Provider Physician Assistant Medical; Visit Provider Physician Assistant Medical
DX: E78.00 Pure hypercholesterolemia, unspecified (principal)
CPT/HCPCS: 36415; 80061; 80076